=== PATIENT | male | born 1945 | race Caucasian/White ===

== ENCOUNTER 2017-01-31 03:08 | Emergency (ER) | payer OTHER ==
[2017-01-31] MEDS ORDERED: LIDOCAINE 2% URO-JET 5 ML SYRINGE UR STA (03:36)
[2017-01-31] MEDS ORDERED: LIDOCAINE 2% URO-JET 5 ML SYRINGE UR ONE (03:38)
[2017-01-31] MEDS ORDERED: PHENAZOPYRIDINE 100 MG TABLET PO STA (04:14)
[2017-01-31] MEDS ORDERED: PHENAZOPYRIDINE 100 MG TABLET PO ONE (04:15)
== END 2017-01-31 04:50 | disposition home or self-care (01) ==
DX: T83.091A Other mechanical complication of indwelling urethral catheter, initial encounter (principal); R31.9 Hematuria, unspecified; N40.0 Benign prostatic hyperplasia without lower urinary tract symptoms
CPT/HCPCS: 51702; 99283; A9270

== ENCOUNTER 2017-05-31 00:41 | Outpatient (CLI) | payer OTHER | END 2017-05-31 00:42 | disposition critical access hospital (66) | LOC: EMS 00:41 | PROVIDERS: ATTEND Surgery | DX: R39.89 Other symptoms and signs involving the genitourinary system (principal) | CPT/HCPCS: A0425; A0429 ==

== ENCOUNTER 2017-05-31 01:13 | Emergency (ER) | payer OTHER ==
--- NOTE | 2017-05-31 01:27 | ED Physician Documentation ---
PD HPI MALE - Stated complaint Stated Complaint: CATHETER - Chief complaint Chief Complaint: UTI - History obtained from History obtained from: Patient, EMS - History of Present Illness Timing - onset: Today Timing - duration: Hours Timing - details: Gradual onset Associated symptoms: Unable to urinate, Walsh problem Similar symptoms before: Diagnosis Recently seen: Clinic (he had routine change of walsh done this morning, and there was some blood out with placement. This seemed to clear then with feeling of urinary retention and walsh not draining in the past 2-3 hours. Very uncomfortable.) Review of Systems Constitutional: denies: Fever, Chills Musculoskeletal: denies: Back pain PD PAST MEDICAL HISTORY - Past Medical History Cardiovascular: Hypertension Neuro: Seizure disorder : Benign prostate hypertrophy, Indwelling catheter - Past Surgical History Past Surgical History: No Derm: Skin grafts - Present Medications Home Medications: Ambulatory Orders Medication Instructions Recorded Confirmed Carbamazepine 200 mg PO TID 01/31/17 01/31/17 Hydrochlorothiazide 25 mg PO DAILY 01/31/17 01/31/17 Levetiracetam 750 mg PO DAILY 01/31/17 01/31/17 Lisinopril 10 mg PO DAILY 01/31/17 01/31/17 Phenazopyridine HCl [Pyridium] 200 mg PO TID 3 Days 01/31/17 - Allergies Allergies/Adverse Reactions: Allergies Allergy/AdvReac Type Severity Reaction Status Date / Time mephobarbital [From Mebaral] Allergy Unknown Verified 05/31/17 01:32 - Social History Does the pt smoke?: No Smoking Status: Never smoker Does the pt drink ETOH?: No Does the pt have substance abuse?: No - Immunizations Immunizations are current?: No Immunizations: TDAP current <10years PD ED PE NORMAL - Vitals Vital signs reviewed: Yes - General General: Alert and oriented X 3, Well developed/nourished, Other (uncomfortable) - Respiratory Respiratory: Clear bilaterally - Abdomen Abdomen: Normal bowel sounds, Soft, Non distended, No organomegaly, Other ( tender with fullness in suprapubic area. ) - Male Male : Other (walsh in place. Meatus appears normal. ) Results - Vitals Vitals: Oxygen O2 Source Room air PD MEDICAL DECISION MAKING - ED course Complexity details: considered differential (walsh would not flush/irrigate so was changed (had large clot in lumen at end). Flow is good now and no bleeding at time of discharge. Bladder scan shows 34 ml, so emptying well. ), d/w patient Departure - Departure Disposition: 01 Home, Self Care Clinical Impression: Obstructed Walsh catheter Qualifiers: Encounter type: initial encounter Qualified Code(s): T83.091A - Other mechanical complication of indwelling urethral catheter, initial encounter Condition: Stable Record reviewed to determine appropriate education?: Yes Instructions: ED Catheter Care Walsh Comments: Usual care of the catheter. Recheck if problems with outflow again. Discharge Date/Time: 05/31/17 02:47
[2017-05-31 01:32] VITALS: BP 140/78
== END 2017-05-31 02:47 | disposition home or self-care (01) ==
LOC: EDUNIT# → EDBD → ED 01:13
DX: T83.098A Other mechanical complication of other urinary catheter, initial encounter (principal); I10 Essential (primary) hypertension; N40.0 Benign prostatic hyperplasia without lower urinary tract symptoms
CPT/HCPCS: 51702; 51798; 99283

== ENCOUNTER 2017-07-25 16:57 | Emergency (ER) | payer OTHER ==
[2017-07-25 20:01] LABS: BILIRUBIN,URINE NEGATIVE (NEGATIVE); PH,URINE 5.5 PH (5.0-7.5)
[2017-07-25 20:02] LABS: UA w/ MICROSCOPIC CHARGE YES
[2017-07-25 20:14] LABS: UR CULTURE IF IND INDICATED; WBC,URINE >25 /HPF (0-3)
[2017-07-25] MEDS ORDERED: levoFLOXacin 250 MG TABLET PO STA (20:39)
--- NOTE | 2017-07-25 20:39 | ED Physician Documentation ---
PD HPI MALE - Stated complaint Stated Complaint: MALE - Chief complaint Chief Complaint: General - History obtained from History obtained from: Patient - History of Present Illness Timing - onset: Today Timing - details: Gradual onset, Still present Associated symptoms: Hematuria, Indwelling catheter PD HPI MALE CONTRIB FACTORS: Not sexually active Similar symptoms before: Has not had sx before Recently seen: Not recently seen - Additional information Additional information: Patient is a 71 year old male with a history of bph and indwelling walsh who is presenting to the emergency department for hematuria. patient states that the symptoms started today. [facility] for [facility]. Patient denied any nausea, vomiting, fever or chills. Review of Systems Constitutional: denies: Fever, Chills Ears: reports: Reviewed and negative Nose: denies: Epistaxis Throat: reports: Reviewed and negative Cardiac: denies: Chest pain / pressure, Palpitations Respiratory: denies: Cough GI: denies: Nausea, Vomiting : reports: Hematuria Skin: denies: Rash, Lesions Musculoskeletal: denies: Back pain, Extremity pain, Joint pain, Extremity swelling Neurologic: denies: Generalized weakness, Focal weakness, Altered mental status Endocrine: denies: Easy bruising / bleeding Immunocompromised: denies: Immunocompromised PD PAST MEDICAL HISTORY - Past Medical History Cardiovascular: Hypertension Neuro: Seizure disorder : Benign prostate hypertrophy, Indwelling catheter - Past Surgical History Past Surgical History: No Derm: Skin grafts - Present Medications Home Medications: Ambulatory Orders Medication Instructions Recorded Confirmed Carbamazepine 200 mg PO TID 01/31/17 07/25/17 Hydrochlorothiazide 25 mg PO DAILY 01/31/17 07/25/17 Levetiracetam 750 mg PO DAILY 01/31/17 07/25/17 Lisinopril 10 mg PO DAILY 01/31/17 07/25/17 Levofloxacin [Levaquin] 750 mg PO DAILY #4 tablet 07/25/17 - Allergies Allergies/Adverse Reactions: Allergies Allergy/AdvReac Type Severity Reaction Status Date / Time mephobarbital [From Mebaral] Allergy Unknown Verified 05/31/17 01:32 - Social History Does the pt smoke?: No Smoking Status: Never smoker Does the pt drink ETOH?: No Does the pt have substance abuse?: No - Immunizations Immunizations are current?: No Immunizations: TDAP current <10years - POLST Patient has POLST: No PD ED PE NORMAL - Vitals Vital signs reviewed: Yes - General General: Alert and oriented X 3, No acute distress - HEENT HEENT: Atraumatic, PERRL - Neck Neck: Supple, no meningeal sign - Cardiac Cardiac: RRR, No murmur - Respiratory Respiratory: No respiratory distress - Abdomen Abdomen: Non distended - Derm Derm: Normal color, Warm and dry, No rash - Extremities Extremities: No deformity - Neuro Neuro: Alert and oriented X 3, No motor deficit, No sensory deficit, Normal speech - Psych Psych: Normal mood, Normal affect PD ED PE EXPANDED - Male Male : Other (walsh in place with mild blood around the meatus) Results - Vitals Vitals: Vital Signs - 24 hr 07/25/17 07/25/17 17:22 20:51 Temperature 36.7 C Heart Rate 67 63 Respiratory 16 18 Rate Blood Pressure 129/82 H 128/73 O2 Saturation 97 100 Oxygen O2 Source Room air - Labs Labs: Laboratory Tests 07/25/17 19:47 Urine Color BROWN Urine Clarity CLOUDY Urine pH 5.5 Ur Specific [place] 1.025 Urine Protein 100 H Urine Glucose (UA) NEGATIVE Urine Ketones TRACE Urine Occult Blood LARGE H Urine Nitrite POSITIVE H Urine Bilirubin NEGATIVE Urine Urobilinogen 1 (NORMAL) Ur Leukocyte Esterase MODERATE H Urine RBC TNTC H Urine WBC >25 H Ur Squamous Epith Cells FEW Squamous Urine Bacteria Moderate H Ur Microscopic Review INDICATED Urine Culture Comments INDICATED PD MEDICAL DECISION MAKING - ED course Complexity details: reviewed old records, reviewed results, re-evaluated patient , considered differential, d/w patient ED course: Patient was seen and examined at bedside. Urine was collected and sent. walsh was replaced. Patient had no signs of obstruction. patient was treated with levoquin for a uti. Patient required no further inpatient work up and was stable for discharge with outpatient follow up. Departure - Departure Disposition: 01 Home, Self Care Clinical Impression: Hematuria, Cystitis Condition: Good Instructions: ED UTI Cystitis Male Follow-Up: primary,care provider [Other] - Within 3 Days Prescriptions: Levofloxacin [Levaquin] 750 mg PO DAILY #4 tablet Comments: Your symptoms today are being caused at least in part by a urinary tract infection. You had your first dose of antibiotics today and will need to be on them for the next 4 days. You should call your doctor on friday to move up you appointment. You may return to the emergency department at any time for new, worsening or uncontrollable symptoms. Discharge Date/Time: 07/25/17 20:51
[2017-07-25] MEDS ORDERED: levoFLOXacin 250 MG TABLET ONE (20:47)
[2017-07-25 20:52] VITALS: BP 128/73
== END 2017-07-25 20:51 | disposition home or self-care (01) ==
LOC: ED 16:57
DX: N30.91 Cystitis, unspecified with hematuria (principal); N40.0 Benign prostatic hyperplasia without lower urinary tract symptoms
CPT/HCPCS: 51702; 81001; 87086; 87181; 99282; 99283; A9270; 81003

== ENCOUNTER 2017-12-16 16:51 | Emergency (ER) | payer OTHER ==
[2017-12-16] MEDS ORDERED: LIDOCAINE 2% URO-JET 5 ML SYRINGE UR STA (17:31)
[2017-12-16] MEDS ORDERED: HYDROcod/ACETAM 5/325 MG TABLET PO STA (17:31)
--- NOTE | 2017-12-16 18:24 | ED Physician Documentation ---
PD HPI MALE - Stated complaint Stated Complaint: CATH BLEEDING - Chief complaint Chief Complaint: Abd Pain - History obtained from History obtained from: Patient - History of Present Illness Timing - onset: Today (had walsh changed at the [facility] (routine change of chronic walsh) and had some bleeding with it, and then walsh not draining the past few hours, with abd cramping.) Timing - duration: Hours Timing - details: Gradual onset Associated symptoms: Walsh problem Similar symptoms before: Diagnosis (clogged walsh) Recently seen: Clinic ([place]) Review of Systems Constitutional: denies: Fever, Chills Nose: denies: Rhinorrhea / runny nose, Congestion Throat: denies: Sore throat Respiratory: denies: Cough PD PAST MEDICAL HISTORY - Past Medical History Cardiovascular: Hypertension Neuro: Seizure disorder : Benign prostate hypertrophy, Indwelling catheter - Past Surgical History Past Surgical History: No Derm: Skin grafts - Present Medications Home Medications: Ambulatory Orders Medication Instructions Recorded Confirmed Lisinopril 10 mg PO DAILY 01/31/17 07/25/17 carBAMazepine [Carbamazepine] 200 mg PO TID 01/31/17 07/25/17 hydroCHLOROthiazide 25 mg PO DAILY 01/31/17 07/25/17 [Hydrochlorothiazide] levETIRAcetam [Levetiracetam] 750 mg PO DAILY 01/31/17 07/25/17 Levofloxacin [Levaquin] 750 mg PO DAILY #4 tablet 07/25/17 - Allergies Allergies/Adverse Reactions: Allergies Allergy/AdvReac Type Severity Reaction Status Date / Time mephobarbital [From Mebaral] Allergy Unknown Verified 05/31/17 01:32 - Social History Does the pt smoke?: No Smoking Status: Never smoker Does the pt drink ETOH?: No Does the pt have substance abuse?: No - Immunizations Immunizations are current?: No Immunizations: TDAP current <10years - POLST Patient has POLST: No PD ED PE NORMAL - Vitals Vital signs reviewed: Yes - General General: Alert and oriented X 3, Well developed/nourished - HEENT HEENT: Moist mucous membranes, Pharynx benign - Cardiac Cardiac: RRR, No murmur - Respiratory Respiratory: Clear bilaterally - Abdomen Abdomen: Normal bowel sounds, Soft, Non tender, Non distended - Male Male : Other (walsh in place, not draining well. ) Results - Vitals Vitals: Oxygen O2 Source Room air PD MEDICAL DECISION MAKING - ED course Complexity details: considered differential (irrigating did not help; walsh changed and new one working okay. ), d/w patient Departure - Departure Disposition: 01 Home, Self Care Clinical Impression: Obstructed Walsh catheter Qualifiers: Encounter type: initial encounter Qualified Code(s): T83.091A - Other mechanical complication of indwelling urethral catheter, initial encounter Condition: Stable Record reviewed to determine appropriate education?: Yes Instructions: ED Catheter Care Walsh Comments: Continue usual Walsh catheter care and usual medications. Follow-up with your primary care as needed. Discharge Date/Time: 12/16/17 19:04
[2017-12-16 18:34] VITALS: BP 155/86
== END 2017-12-16 19:04 | disposition home or self-care (01) ==
LOC: ED 16:51
DX: T83.091A Other mechanical complication of indwelling urethral catheter, initial encounter (principal); I10 Essential (primary) hypertension; N40.0 Benign prostatic hyperplasia without lower urinary tract symptoms
CPT/HCPCS: 51702; 51798; 99283; A9270

== ENCOUNTER 2018-01-10 02:32 | Inpatient (IN) | payer OTHER ==
[~2018-01-10 02:32] MED LIST: levoFLOXacin 500 MG/100 ML 500 MG/100 ML BAG IV SCH
[2018-01-10] MEDS ORDERED: fentaNYL 100 MCG/2 ML VIAL IM STA (03:05)
[2018-01-10 04:18] LABS: BILIRUBIN,URINE NEGATIVE (NEGATIVE); GLUCOSE, URINE (UA) NEGATIVE (NEGATIVE); KETONES,URINE (UA) NEGATIVE (NEGATIVE); LEUKOCYTE ESTERASE, URINE NEGATIVE (NEGATIVE); NITRITE,URINE NEGATIVE (NEGATIVE); OCCULT BLOOD,URINE LARGE (NEGATIVE); PROTEIN,URINE NEGATIVE (NEGATIVE); UROBILINOGEN,URINE 0.2 (NORMAL) E.U./dL (NORMAL)
[2018-01-10 04:20] LABS: CLARITY,URINE HAZY (CLEAR)
[2018-01-10 04:26] LABS: BACTERIA,URINE None Seen /HPF (None Seen); RBC,URINE TNTC /HPF (0-5); SQUAMOUS EPITHELIAL CELL,UR NONE SEEN (<= Few)
[2018-01-10] MEDS ORDERED: SALINE ENEMA 133 ML BOTTLE RC STA (04:34)
--- NOTE | 2018-01-10 04:40 | ED Physician Documentation ---
PD HPI MALE - Stated complaint Stated Complaint: MALE - Chief complaint Chief Complaint: General - History obtained from History obtained from: Patient - History of Present Illness Timing - onset: Today Timing - details: Gradual onset, Still present Associated symptoms: Unable to urinate, Hematuria Similar symptoms before: Work up / diagnostics, Treatment Recently seen: Clinic - Additional information Additional information: Patient is a 72 year old male with a history of bph and indwelling walsh catheter who is presenting to the emergency department for urinary retention. Patient states that he had a catheter placed at the [facility] earlier today and it was fairly bloody. Patient states that this evening he was unable to urinate and had a distended abdomen. Review of Systems Constitutional: reports: Chills. denies: Fever Eyes: reports: Reviewed and negative Ears: reports: Reviewed and negative Nose: reports: Reviewed and negative Throat: reports: Reviewed and negative Cardiac: denies: Chest pain / pressure, Palpitations GI: reports: Abdominal Pain, Abdominal Swelling. denies: Nausea, Vomiting : reports: Unable to Void, Hematuria Skin: denies: Rash, Lesions Neurologic: denies: Generalized weakness, Focal weakness Immunocompromised: denies: Immunocompromised PD PAST MEDICAL HISTORY - Past Medical History Past Medical History: Yes Cardiovascular: Hypertension Respiratory: None Neuro: Seizure disorder Endocrine/Autoimmune: None : Benign prostate hypertrophy, Indwelling catheter HEENT: None Psych: None Musculoskeletal: None Derm: None - Past Surgical History Past Surgical History: No Derm: Skin grafts - Present Medications Home Medications: Ambulatory Orders Medication Instructions Recorded Confirmed Lisinopril 10 mg PO DAILY 01/31/17 07/25/17 carBAMazepine [Carbamazepine] 200 mg PO TID 01/31/17 07/25/17 hydroCHLOROthiazide 25 mg PO DAILY 01/31/17 07/25/17 [Hydrochlorothiazide] levETIRAcetam [Levetiracetam] 750 mg PO DAILY 01/31/17 07/25/17 Levofloxacin [Levaquin] 750 mg PO DAILY #4 tablet 07/25/17 - Allergies Allergies/Adverse Reactions: Allergies Allergy/AdvReac Type Severity Reaction Status Date / Time mephobarbital [From Mebaral] Allergy Unknown Verified 01/10/18 02:38 - Social History Does the pt smoke?: No Smoking Status: Never smoker Does the pt drink ETOH?: No Does the pt have substance abuse?: No - Immunizations Immunizations are current?: No Immunizations: TDAP current <10years - POLST Patient has POLST: No PD ED PE NORMAL - Vitals Vital signs reviewed: Yes - General General: Alert and oriented X 3 - HEENT HEENT: Atraumatic, PERRL - Cardiac Cardiac: RRR - Respiratory Respiratory: No respiratory distress - Derm Derm: Normal color, Warm and dry - Extremities Extremities: No deformity - Neuro Neuro: Alert and oriented X 3, No motor deficit, No sensory deficit, Normal speech Eye Opening: Spontaneous PD ED PE EXPANDED - General General: Alert, In Pain - Abdomen Abdomen: Distended, Tender to palpation, Suprapubic - Male Male : Other (walsh in place, small amount of blood at the meatus) Results - Vitals Vitals: Vital Signs - 24 hr 01/10/18 01/10/18 01/10/18 02:37 03:26 03:39 Temperature 36.7 C Heart Rate 99 89 93 Respiratory 22 26 H 24 Rate Blood Pressure 140/101 H 172/93 H 165/87 H O2 Saturation 99 100 100 01/10/18 01/10/18 01/10/18 04:26 04:54 04:59 Temperature Heart Rate 90 90 Respiratory 22 22 22 Rate Blood Pressure 138/83 H 170/98 H O2 Saturation 100 100 Oxygen O2 Source Room air - Labs Labs: Laboratory Tests 01/10/18 04:15 Urine Color YELLOW Urine Clarity HAZY Urine pH 5.0 Ur Specific [place] <=1.005 Urine Protein NEGATIVE Urine Glucose (UA) NEGATIVE Urine Ketones NEGATIVE Urine Occult Blood LARGE H Urine Nitrite NEGATIVE Urine Bilirubin NEGATIVE Urine Urobilinogen 0.2 (NORMAL) Ur Leukocyte Esterase NEGATIVE Urine RBC TNTC H Urine WBC 0-3 Ur Squamous Epith Cells NONE SEEN Urine Bacteria None Seen Ur Microscopic Review INDICATED Urine Culture Comments NOT INDICATED PD MEDICAL DECISION MAKING - ED course Complexity details: reviewed old records, reviewed results, re-evaluated patient , considered differential, d/w patient ED course: Patient was seen and examined at bedside. walsh was exchanged and clots were removed. Patient's bladder was flushed with 3 liter bag. Patient stated he was constipated and asked for an emema and was treated with one. Patient required no further inpatient work up and was stable for discharge with outpatient follow up. Departure - Departure Disposition: 01 Home, Self Care Clinical Impression: Hematuria, Obstructed Walsh catheter Condition: Good Instructions: ED Catheter Care Walsh Follow-Up: Provider,Other [Primary Care Provider] - Within 3 Days Comments: Your symptoms today were being caused by urinary retention which is likely secondary to a blood clot. Your bladder has been flushed which should help with the symptoms. You should follow up with your doctor if your symptoms return or you may return to the emergency department.
[2018-01-10] MEDS ORDERED: SODIUM CHLORIDE 0.9% 1,000 ML IV ONE (07:09)
--- NOTE | 2018-01-10 08:48 | ED Physician Documentation ---
History of Present Illness - Stated complaint Stated Complaint: MALE - Chief complaint Chief Complaint: General PD PAST MEDICAL HISTORY - Past Medical History Past Medical History: Yes Cardiovascular: Hypertension Respiratory: None Neuro: Seizure disorder Endocrine/Autoimmune: None : Benign prostate hypertrophy, Indwelling catheter HEENT: None Psych: None Musculoskeletal: None Derm: None - Past Surgical History Past Surgical History: No Derm: Skin grafts - Present Medications Home Medications: Ambulatory Orders Medication Instructions Recorded Confirmed Lisinopril 10 mg PO 1700 01/31/17 01/10/18 carBAMazepine [Carbamazepine] 200 mg PO 0800,1200,1700 01/31/17 01/10/18 hydroCHLOROthiazide 25 mg PO DAILY 01/31/17 01/10/18 [Hydrochlorothiazide] levETIRAcetam [Levetiracetam] 375 mg PO BID 01/31/17 01/10/18 Ascorbic Acid [Vitamin C] 1,000 mg PO DAILY 01/10/18 01/10/18 Cholecalciferol [Vitamin D3] 5,000 units PO DAILY 01/10/18 01/10/18 Finasteride 5 mg PO DAILY 01/10/18 01/10/18 [place]-3 Acid Ethyl Esters [Lovaza] 1 gm PO DAILY 01/10/18 01/10/18 Tamsulosin [Flomax] 0.4 mg PO 1700 01/10/18 01/10/18 carBAMazepine [Carbamazepine] 400 mg PO QPM 01/10/18 01/10/18 - Allergies Allergies/Adverse Reactions: Allergies Allergy/AdvReac Type Severity Reaction Status Date / Time mephobarbital [From Mebaral] Allergy Unknown Verified 01/10/18 02:38 - Social History Does the pt smoke?: No Smoking Status: Never smoker Does the pt drink ETOH?: No Does the pt have substance abuse?: No - Immunizations Immunizations are current?: No Immunizations: TDAP current <10years - POLST Patient has POLST: No Results - Vitals Vitals: Vital Signs - 24 hr 01/10/18 01/10/18 01/10/18 02:37 03:26 03:39 Temperature 36.7 C Heart Rate 99 89 93 Respiratory 22 26 H 24 Rate Blood Pressure 140/101 H 172/93 H 165/87 H O2 Saturation 99 100 100 01/10/18 01/10/18 01/10/18 04:26 04:54 04:59 Temperature Heart Rate 90 90 Respiratory 22 22 22 Rate Blood Pressure 138/83 H 170/98 H O2 Saturation 100 100 01/10/18 01/10/18 01/10/18 06:06 06:45 07:15 Temperature 37.6 C H Heart Rate 90 114 H Respiratory 20 20 16 Rate Blood Pressure 164/92 H 90/50 L O2 Saturation 100 93 01/10/18 01/10/18 01/10/18 08:32 09:30 10:30 Temperature Heart Rate 99 95 94 Respiratory 18 18 18 Rate Blood Pressure 104/67 85/57 L 101/56 L O2 Saturation 97 99 100 01/10/18 11:30 Temperature Heart Rate 95 Respiratory 18 Rate Blood Pressure 89/58 L O2 Saturation 100 Oxygen O2 Source Room air - Labs Labs: Laboratory Tests 01/10/18 01/10/18 01/10/18 04:15 09:45 09:45 WBC 16.3 H RBC 3.85 L Hgb 12.4 L Hct 35.1 L MCV 91.2 MCH 32.2 H MCHC 35.4 RDW 13.7 Plt Count 237 MPV 7.0 L Neut # Not Reportable Lymph # Not Reportable Owen # Not Reportable Eos # Not Reportable Baso # Not Reportable Absolute Nucleated RBC Not Reportable Total Counted 100 Band Neuts % (Manual) 17 H Abnorm Lymph % (Manual) 0 Metamyelocytes % 3 H Nucleated RBC % Not Reportable Neutrophils # (Manual) 15.0 H Lymphocytes # (Manual) 0.3 L Monocytes # (Manual) 0.5 Eosinophils # (Manual) 0.0 Basophils # (Manual) 0.0 Differential Comment MANUAL DIFFERENTIAL WBC Morphology 1+ VACUOLATION Platelet Estimate NORMAL (130-450,000) Platelet Morphology NORMAL APPEARANCE RBC Morph Micro Appear NORMAL APPEARANCE Sodium 130 L Potassium 2.8 L Chloride 98 L Carbon Dioxide 22 Anion Gap 10.0 BUN 17 Creatinine 1.2 Estimated GFR (MDRD) 59 L Glucose 122 H Lactic Acid Calcium 8.2 L Urine Color YELLOW Urine Clarity HAZY Urine pH 5.0 Ur Specific [place] <=1.005 Urine Protein NEGATIVE Urine Glucose (UA) NEGATIVE Urine Ketones NEGATIVE Urine Occult Blood LARGE H Urine Nitrite NEGATIVE Urine Bilirubin NEGATIVE Urine Urobilinogen 0.2 (NORMAL) Ur Leukocyte Esterase NEGATIVE Urine RBC TNTC H Urine WBC 0-3 Urine WBC Clumps Ur Squamous Epith Cells NONE SEEN Urine Bacteria None Seen Ur Microscopic Review INDICATED Urine Culture Comments NOT INDICATED 01/10/18 01/10/18 09:45 11:20 WBC RBC Hgb Hct MCV MCH MCHC RDW Plt Count MPV Neut # Lymph # Owen # Eos # Baso # Absolute Nucleated RBC Total Counted Band Neuts % (Manual) Abnorm Lymph % (Manual) Metamyelocytes % Nucleated RBC % Neutrophils # (Manual) Lymphocytes # (Manual) Monocytes # (Manual) Eosinophils # (Manual) Basophils # (Manual) Differential Comment WBC Morphology Platelet Estimate Platelet Morphology RBC Morph Micro Appear Sodium Potassium Chloride Carbon Dioxide Anion Gap BUN Creatinine Estimated GFR (MDRD) Glucose Lactic Acid 1.8 Calcium Urine Color YELLOW Urine Clarity SL. 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 hx BPH and urinary retention came to ED last night with hematuria clots and retention after walsh placement at [facility] had walsh exchanged for a 3 way, UA neg for infection, badder irrigated clear, given enema, plan was to dc with walsh fup his urologist just before manufacturing shift supervisor left nurse did dc VS and reported pt to be weak and have a slightly low BP - so manufacturing shift supervisor ordered 1 L NS and felt pt could be dced now the L of IVF is done and BP is better but nursing comes to me concerned he has clots in his urine again so I recommended more irrigation and went to see the pt after irrigation urine is draining clear again but pt SBP is 90 - he normally runs about 120+ per pt RRR CTAB soft NT, small blood at meatus, clear urine draining, no retention on bladder scan he states he had chills recently no fever, no cough, no abd pain other than distension, no NVD no labs were run last night so those were added on UA was clean except for blood but very dilute after irrigation so consider as source of infection - or prostate - sent a rpt UA (which was +) and will give cipro also got labs notable for leukocytosis and bandemia given persistent hypotension pt will need admit still low BP gave another 2 L NS for 30cc/kg checked prostate and it is enlarged and a bit boggy/spongy but not terribly tender will add on CXR but feel source in urinary call to [facility] re [facility] here vs transfer - spoke to Trey Pimentel who advises me the [facility] is not [facility] at this time, he states that there is no one available at the [facility] today to authorize admission to [facility] or confirm payment for services but that the [facility] cannot accept the pt, [employer] tried to called [facility] Care Management but advises me they are not available today either so will admit for sepsis (hypotension bandemia, likely prostate infection) - now that walsh is irrigated and working feel reasonable to care for pt here spoke to hospitalist at 1245 also care management available later in the day and states they will follow up with [facility] when available Departure - Departure Disposition: 66 [facility] DC/Xfer Clinical Impression: Sepsis, Hematuria, Obstructed Walsh catheter Condition: Fair Discharge Date/Time: 01/10/18 14:00
[2018-01-10] MEDS ORDERED: CIPROFLOXACIN 400 MG/200 ML 200 ML IV ONE (09:35)
[2018-01-10 10:00] LABS: CALCIUM 8.2 mg/dL (8.5-10.3); CREATININE 1.2 mg/dL (0.6-1.2)
[2018-01-10 10:01] LABS: BASOPHILS % (AUTO) 1.2 %; HGB - HEMOGLOBIN 12.4 g/dL (14.0-18.0); LYMPHOCYTES % (AUTO) 1.5 %; MEAN CORPUSCULAR HEMOGLOBIN 32.2 pg (27.0-31.0); MEAN CORPUSCULAR HGB CONC 35.4 g/dL (32.0-36.0); MEAN CORPUSCULAR VOLUME 91.2 fL (80.0-94.0); NEUTROPHILS % (AUTO) 95.3 %; PLT - PLATELET COUNT 237 10^3/uL (130-450); RED BLOOD COUNT 3.85 10^6/uL (4.70-6.10); RED CELL DISTRIBUTION WIDTH 13.7 % (12.0-15.0); WHITE BLOOD COUNT 16.3 x10^3/uL (4.8-10.8)
[2018-01-10 10:05] LABS: ABNORMAL LYMPHS % (MANUAL) 0 %
[2018-01-10 10:23] LABS: BAND NEUTROPHILS % (MANUAL) 17 %; LYMPHOCYTES # (MANUAL) 0.3 10^3/uL (1.5-3.5); LYMPHOCYTES % (MANUAL) 2 %; METAMYELOCYTES % (MANUAL) 3 %; MONOCYTES # (MANUAL) 0.5 10^3/uL (0.0-1.0); NEUTROPHILS % (MANUAL) 75 %; PLATELET ESTIMATE, MANUAL NORMAL (130-450,000) (NORMAL); PLATELET MORPHOLOGY NORMAL APPEARANCE (NORMAL); RBC MORPHOLOGY (MULTIPLE) NORMAL APPEARANCE (NORMAL)
[2018-01-10 10:24] LABS: DIFFERENTIAL COMMENT MANUAL DIFFERENTIAL
[2018-01-10] MEDS ORDERED: POTASSIUM CHLORIDE 20 MEQ TABLET PO STA (10:36)
[2018-01-10] MEDS ORDERED: SODIUM CHLORIDE 0.9% 2,000 ML IV ONE (10:36)
[2018-01-10 11:26] LABS: BILIRUBIN,URINE NEGATIVE (NEGATIVE); GLUCOSE, URINE (UA) NEGATIVE (NEGATIVE); KETONES,URINE (UA) NEGATIVE (NEGATIVE); LEUKOCYTE ESTERASE, URINE MODERATE (NEGATIVE); NITRITE,URINE NEGATIVE (NEGATIVE); OCCULT BLOOD,URINE LARGE (NEGATIVE); PROTEIN,URINE 100 mg/dL (NEGATIVE); UROBILINOGEN,URINE 0.2 (NORMAL) E.U./dL (NORMAL)
[2018-01-10 11:30] LABS: CLARITY,URINE SL. CLOUDY (CLEAR)
[2018-01-10 11:39] LABS: BACTERIA,URINE Rare /HPF (None Seen); RBC,URINE TNTC /HPF (0-5); SQUAMOUS EPITHELIAL CELL,UR NONE SEEN (<= Few); WBC CLUMPS,URINE PRESENT
--- NOTE | 2018-01-10 12:22 | XRAY Report ---
EXAM: CHEST RADIOGRAPHY EXAM DATE: 01/10/2018 11:43 AM. CLINICAL HISTORY: Fever. COMPARISON: None. TECHNIQUE: 1 view. FINDINGS: Lungs/Pleura: Lung volumes are slightly low. No focal opacities evident. No pleural effusion. No pneu mothorax. Mediastinum: Within exam limitations, the cardiomediastinal contour is normal. Other: No acute osseous abnormality. IMPRESSION: No acute cardiopulmonary abnormality. [facility] Referring Provider Line: [phone] SITE ID: [id number]
[2018-01-10] MEDS ORDERED: PROCHLORPERAZINE 10 MG/2 ML VIAL IVP PRN (13:04)
[2018-01-10] MEDS ORDERED: oxyCODONE 5 MG TABLET PO PRN (13:04)
[2018-01-10] MEDS ORDERED: SODIUM CHLORIDE FLUSH 0.9% 10 ML SYRINGE IVP PRN (13:04)
[2018-01-10] MEDS ORDERED: TEMAZEPAM 15 MG CAPSULE PO PRN (13:04)
--- NOTE | 2018-01-10 13:30 | HISTORY & PHYSICAL EXAMINATION ---
Chief Complaint - Chief Complaint Chief Complaint: Bleeding status post Taylor catheter insertion History of Present Illness - Admitted From Admitted From:: Home - History Obtained From Records Reviewed: Yes History obtained from: Patient, records, Dr Nguyen Exam Limitations: none - History of Present Illness HPI Comment/Other: Mr. Mark Guevara is a pleasant 72-year-old gentleman with a history of prostatic hyperplasia who normally has a indwelling Taylor catheter. Yesterday he went down to the [facility] where the catheter was replaced. He began to have bleeding afterwards and came to the emergency department at [facility] when the bleeding did not stop. He was evaluated treated and was about to be discharged when he started to become hypotensive and show signs that he may be becoming septic. A repeat CBC found the patient had to have developed a bandemia and an elevated leukocyte count and he is therefore admitted with a diagnosis of prostatitis/urosepsis. History - Past Medical History Cardiovascular: reports: Hypertension, High cholesterol Respiratory: reports: None Neuro: reports: Seizure disorder Endocrine/Autoimmune: reports: None : reports: Benign prostate hypertrophy, Indwelling catheter HEENT: reports: None Psych: reports: None Musculoskeletal: reports: None Derm: reports: None MRSA Hx?: No - Past Surgical History Ortho: reports: Other (The patient says he has had minor surgeries on his foot and hand.) Derm: reports: Skin grafts - Family & Social History Family History: Mother: , CAD, CVA/TIA, Hyperlipidemia, Hypertension, [place] , Father: , Cancer, Diabetes, Type 1 Living arrangement: At home Living Situation: Alone - Substance History Use: Uses substance without health or social issues: NONE Abuse: Recurrent use of substance despite neg consequences: NONE Dependence: Experiences withdrawal or developed tolerances: NONE - POLST Patient has POLST: No POLST Status: Full Code Meds/Allgy - Home Medications Home Medications: Ambulatory Orders Medication Instructions Recorded Confirmed Lisinopril 10 mg PO 1700 01/31/17 01/10/18 carBAMazepine [Carbamazepine] 200 mg PO 0800,1200,1700 01/31/17 01/10/18 hydroCHLOROthiazide 25 mg PO DAILY 01/31/17 01/10/18 [Hydrochlorothiazide] levETIRAcetam [Levetiracetam] 375 mg PO BID 01/31/17 07/25/17 Ascorbic Acid [Vitamin C] 1,000 mg PO DAILY 01/10/18 01/10/18 Cholecalciferol [Vitamin D3] 5,000 units PO DAILY 01/10/18 01/10/18 Finasteride 5 mg PO DAILY 01/10/18 01/10/18 [place]-3 Acid Ethyl Esters [Lovaza] 1 gm PO DAILY 01/10/18 01/10/18 Tamsulosin [Flomax] 0.4 mg PO 1700 01/10/18 01/10/18 carBAMazepine [Carbamazepine] 200 mg PO QPM 01/10/18 01/10/18 - Allergies Allergies/Adverse Reactions: Allergies Allergy/AdvReac Type Severity Reaction Status Date / Time mephobarbital [From Mebaral] Allergy Unknown Verified 01/10/18 02:38 Review of Systems - Constitutional Constitutional: denies: Fatigue, Fever, Chills, Night sweats - Eyes Eyes: denies: Pain, Irritation, Blurred vision, Dipolpia - Ears, Nose & Throat Ears, Nose & Throat: denies: Ear pain, Hearing loss, Tinnitus, Vertigo, Nasal discharge, Nosebleeds - Cardiovascular Cariovascular: denies: Irregular heart rate, Palpitations, Chest pain, Edema, Syncope - Respiratory Respiratory: denies: Cough, Sputum production, Wheezing, Snoring, Hemoptysis, Orthopnea - Gastrointestinal Gastrointestinal: denies: Abdominal pain, Abdominal distention, Constipation, Diarrhea, Change in bowel habits, Rectal bleeding - Genitourinary Genitourinary: reports: Dysuria, Hematuria, Flank pain. denies: Frequency, Urgency - Musculoskeletal Musculoskeletal: denies: Muscle pain, Back pain, Muscle aches, Stiffness - Integumentary Integumentary: denies: Rash, Pruritis, Lesions, Dryness - Neurological Neurological: denies: General weakness, Focal weakness, Headache, Dizziness, Numbness - Psychiatric Psychiatric: denies: Depression, Anxiety, Suicidal, Hallucinations - Endocrine Endocrine: denies: Polyuria, Polydypsia, Polyphagia - Hematologic/Lymphatic Hematologic/Lymphatic: denies: Anemia, Bruising, Lymphadenopathy - All Other Systems All Other Systems: reports: Reviewed and negative Exam - Vital Signs Reviewed Vital Signs: Yes Vital Signs: Vital Signs x48h Temp Pulse Resp BP Pulse Ox 01/10/18 11:30 95 18 89/58 L 100 01/10/18 10:30 94 18 101/56 L 100 01/10/18 09:30 95 18 85/57 L 99 01/10/18 08:32 99 18 104/67 97 01/10/18 07:15 114 H 16 90/50 L 93 01/10/18 06:45 20 01/10/18 06:06 37.6 C H 90 20 164/92 H 100 - Physical Exam General Appearance: positive: No acute distress, Alert, Mild distress Eyes Bilateral: positive: Normal inspection, PERRL, EOMI, No lid inflammation, Conjunctivae nml, No scleral icterus ENT: positive: ENT inspection nml, Pharynx nml, No signs of dehydration Neck: positive: Nml inspection, Thyroid nml, No JVD, Trachea midline. negative : Thyromegaly Respiratory: positive: Chest non-tender, No respiratory distress, Breath sounds nml. negative: Wheezes, Rales, Rhonchi Cardiovascular: positive: Regular rate & rhythm, No murmur, No gallop Peripheral Pulses: positive: 1+ Abdomen: positive: Non-tender, No organomegaly, Nml bowel sounds, No distention. negative: Guarding, Rebound Back: positive: Nml inspection. negative: CVA tenderness (R), CVA tenderness (L ) Skin: positive: Color nml, No rash, Warm, Dry. negative: Cyanosis Extremities: positive: Non-tender, Full ROM, Nml appearance Neurologic/Psychiatric: positive: Oriented x3, CN's nml (2-12), Motor nml, Sensation nml, Mood/affect nml Conclusion/Plan - Problem List (1) Prostatitis Conclusion/Plan: Presumed, possibly urosepsis. We will start the patient on IV fluoroquinolones and monitor his Taylor catheter for clots, irrigating as necessary. (2) Hypertension Conclusion/Plan: The patient is hypotensive at this time, we will hold the lisinopril and hydrochlorothiazide. (3) Hypercholesterolemia Conclusion/Plan: Continue omega-3 fatty acids (4) BPH (benign prostatic hyperplasia) Conclusion/Plan: The patient had a Taylor catheter replaced at the [facility] which has caused this current event. We are treating the patient for prostatitis.Taylor catheter is in place, we will continue to monitor. - Lab Results Lab results reviewed: Yes Fish Bones: 01/10/18 09:45 01/10/18 09:45 Core Measures - Anticipated LOS I expect patient to be DC'd or transferred within 96 hours.: Yes - DVT/VTE - Prophylaxis VTE/DVT Device ordered at admit?: Yes
[2018-01-10] MEDS ORDERED: levoFLOXacin 500 MG/100 ML 500 MG/100 ML BAG IV SCH (14:00)
[2018-01-10] MEDS: D5.45NS W/20 MEQ KCL 1,000 ML IV SCH (14:51)
[2018-01-10] MEDS ORDERED: LISINOPRIL 20 MG TABLET PO SCH (17:00)
[2018-01-10] MEDS: SODIUM CHLORIDE FLUSH 0.9% 10 ML SYRINGE IVP SCH (17:22)
[2018-01-10] MEDS: carBAMazepine 200 MG TABLET PO SCH ×2 (17:22→20:43)
[2018-01-10] MEDS: TAMSULOSIN 0.4 MG CAPSULE PO SCH (17:22)
[2018-01-10] MEDS ORDERED: IBUPROFEN 400 MG TABLET PO PRN (18:55)
[2018-01-10] MEDS: levETIRAcetam 250 MG TABLET PO SCH (20:43)
[2018-01-11] MEDS ORDERED: levoFLOXacin 500 MG/100 ML 500 MG/100 ML BAG IV SCH
[2018-01-11] MEDS: SODIUM CHLORIDE FLUSH 0.9% 10 ML SYRINGE IVP SCH ×3 (00:13→15:53)
[2018-01-11] MEDS: D5.45NS W/20 MEQ KCL 1,000 ML IV SCH ×3 (01:19→22:32)
[2018-01-11 08:00] LABS: HGB - HEMOGLOBIN 11.4 g/dL (14.0-18.0); MEAN CORPUSCULAR HEMOGLOBIN 32.3 pg (27.0-31.0); MEAN CORPUSCULAR HGB CONC 34.7 g/dL (32.0-36.0); RED BLOOD COUNT 3.52 10^6/uL (4.70-6.10); RED CELL DISTRIBUTION WIDTH 14.7 % (12.0-15.0); WHITE BLOOD COUNT 11.9 x10^3/uL (4.8-10.8)
[2018-01-11] MEDS: levETIRAcetam 250 MG TABLET PO SCH ×2 (08:34→20:14)
[2018-01-11] MEDS: POTASSIUM CHLORIDE 20 MEQ TABLET PO SCH ×2 (08:34→20:15)
[2018-01-11] MEDS: carBAMazepine 200 MG TABLET PO SCH ×5 (08:35→20:14)
[2018-01-11] MEDS: FAMOTIDINE 20 MG TABLET PO SCH (08:35)
[2018-01-11] MEDS: FINASTERIDE 5 MG TABLET PO SCH (08:35)
[2018-01-11] MEDS: POLYETHYLENE GLYCOL 3350 17 GM PACKET PO SCH (08:36)
[2018-01-11] MEDS ORDERED: hydroCHLOROthiazide 25 MG TABLET PO SCH (09:00)
--- NOTE | 2018-01-11 14:20 | PROVIDER PROGRESS NOTE ---
Subjective - Prog Note Date Prog Note Date: 01/11/18 Prog Note Time: 13:30 - Subjective Pt reports feeling: Improved Subjective: The patient feels "a little better" but is still quite weak.He is not short of breath but does have dysuria. He denies any fevers or chills. He has been eating fairly well and moved his bowels yesterday. Current Medications - Current Medications Current Medications: Bacitracin, carbamazepine, D5W, famotidine, finasteride, hydrochlorothiazide, ibuprofen, Keppra, levofloxacin, lisinopril, oxycodone, polyethylene glycol, Potassium chloride, Compazine, sodium chloride, tamsulosin, temazepam Objective - Vital Signs/Intake & Output Reviewed Vital Signs: Yes Vital Signs: Vital Signs x48h Temp Pulse Resp BP Pulse Ox 01/11/18 12:20 37.1 C 74 24 118/60 97 01/11/18 07:34 37.2 C 89 18 111/52 L 97 Intake & Output: Intake & Output 01/08/18 01/09/18 01/10/18 01/11/18 23:59 23:59 23:59 23:59 Intake Total 1020 2965 Output Total 1250 5075 Balance -230 -2110 - Objective General Appearance: positive: No acute distress, Alert Eyes Bilateral: positive: Normal inspection, PERRL, EOMI, No lid inflammation, Conjunctivae nml, No scleral icterus ENT: positive: ENT inspection nml, Pharynx nml, No signs of dehydration Neck: positive: Nml inspection, Thyroid nml, No JVD, Trachea midline. negative : Thyromegaly Respiratory: positive: Chest non-tender, No respiratory distress, Breath sounds nml. negative: Wheezes, Rales, Rhonchi Cardiovascular: positive: Regular rate & rhythm, No murmur, No gallop Abdomen: positive: Non-tender, No organomegaly, Nml bowel sounds, No distention. negative: Guarding, Rebound Back: positive: Nml inspection. negative: CVA tenderness (R), CVA tenderness (L ) Skin: positive: Color nml, No rash, Warm, Dry. negative: Cyanosis Extremities: positive: Non-tender, Full ROM, Nml appearance Neurologic/Psychiatric: positive: Oriented x3, CN's nml (2-12), Motor nml, Sensation nml, Mood/affect nml - Lab Results Fish Bones: 01/11/18 07:52 01/11/18 07:52 Other Labs: Lab Results x24hrs 18 01/11/18 Range/Units 07:52 07:52 WBC 11.9 H (4.8-10.8) x10^3/uL RBC 3.52 L (4.70-6.10) 10^6/uL Hgb 11.4 L (14.0-18.0) g/dL Hct 32.8 L (42.0-52.0) % MCV 93.0 (80.0-94.0) fL MCH 32.3 H (27.0-31.0) pg MCHC 34.7 (32.0-36.0) g/dL RDW 14.7 (12.0-15.0) % Plt Count 215 (130-450) 10^3/uL MPV 7.0 L (7.4-11.4) fL Sodium 136 (135-145) mmol/L Potassium 3.7 (3.5-5.0) mmol/L Chloride 108 (101-111) mmol/L Carbon Dioxide 22 (21-32) mmol/L Anion Gap 6.0 (6-13) BUN 14 (6-20) mg/dL Creatinine 1.0 (0.6-1.2) mg/dL Estimated GFR (MDRD) 73 L (>89) Glucose 120 H (70-100) mg/dL Calcium 8.0 L (8.5-10.3) mg/dL Assessment/Plan - Problem List (1) Prostatitis Impression: Presumed, possibly urosepsis. We will start the patient on IV fluoroquinolones and monitor his Talyor catheter for clots, irrigating as necessary. The patient was admitted because he became very hypotensive and this was regarded to be sepsis. His blood pressure has been in the low 110s systolically since that time and this no longer appears to be a major issue. (2) Hypertension Impression: We are still holding the patient's lisinopril and hydrochlorothiazide secondary to his episode of hypotension yesterday. Continue present care. (3) Hypercholesterolemia Impression: Continue omega-3 fatty acidsthe patient cannot tolerate statins. (4) BPH (benign prostatic hyperplasia) Impression: The patient had a Taylor catheter replaced at the [facility] which has caused this current event. We are treating the patient for prostatitis. Taylor catheter is in place, we will continue to monitor.
[2018-01-11] MEDS: TAMSULOSIN 0.4 MG CAPSULE PO SCH (17:16)
[2018-01-11] MEDS ORDERED: SODIUM CHLORIDE FLUSH 0.9% 10 ML SYRINGE ONE (20:06)
[2018-01-11] MEDS: BACITRACIN OINT TOP PRN (22:33)
[2018-01-11] MEDS: levoFLOXacin 750 MG/150 ML 750 MG/150 ML BAG IV SCH (23:59)
[2018-01-12] MEDS: SODIUM CHLORIDE FLUSH 0.9% 10 ML SYRINGE IVP SCH ×3 (00:05→17:30)
[2018-01-12 06:08] LABS: HGB - HEMOGLOBIN 11.8 g/dL (14.0-18.0); MEAN CORPUSCULAR HEMOGLOBIN 31.6 pg (27.0-31.0); MEAN CORPUSCULAR HGB CONC 33.9 g/dL (32.0-36.0); MEAN CORPUSCULAR VOLUME 93.4 fL (80.0-94.0); RED BLOOD COUNT 3.72 10^6/uL (4.70-6.10); RED CELL DISTRIBUTION WIDTH 14.4 % (12.0-15.0)
[2018-01-12 06:18] LABS: CALCIUM 8.3 mg/dL (8.5-10.3)
[2018-01-12] MEDS: FINASTERIDE 5 MG TABLET PO SCH (09:05)
[2018-01-12] MEDS: FAMOTIDINE 20 MG TABLET PO SCH (09:05)
[2018-01-12] MEDS: POTASSIUM CHLORIDE 20 MEQ TABLET PO SCH ×2 (09:05→20:52)
[2018-01-12] MEDS: levETIRAcetam 250 MG TABLET PO SCH ×2 (09:05→20:51)
[2018-01-12] MEDS: D5.45NS W/20 MEQ KCL 1,000 ML IV SCH ×2 (09:07→19:23)
[2018-01-12] MEDS: POLYETHYLENE GLYCOL 3350 17 GM PACKET PO SCH (10:32)
[2018-01-12] MEDS: carBAMazepine 200 MG TABLET PO SCH ×3 (13:08→20:52)
--- NOTE | 2018-01-12 16:06 | PROVIDER PROGRESS NOTE ---
Subjective - Prog Note Date Prog Note Date: 01/12/18 Prog Note Time: 14:10 - Subjective Pt reports feeling: Improved (The patient still feels weak but is breathing easier. He denies any new pain. He is eating and moving his bowels. He slept well last night. There were no other new complaints.) Current Medications - Current Medications Current Medications: Bacitracin, carbamazepine, D5W, famotidine, finasteride, hydrochlorothiazide, ibuprofen, Keppra, levofloxacin, lisinopril, oxycodone, polyethylene glycol, Potassium chloride, Compazine, sodium chloride, tamsulosin, temazepam Objective - Vital Signs/Intake & Output Reviewed Vital Signs: Yes Vital Signs: Vital Signs x48h Temp Pulse Resp BP Pulse Ox 01/12/18 15:57 36.8 C 65 20 165/89 H 99 Intake & Output: Intake & Output 01/09/18 01/10/18 01/11/18 01/12/18 23:59 23:59 23:59 23:59 Intake Total 1020 5085 1960 Output Total 1250 8225 3150 Balance -230 -3140 -1190 - Objective General Appearance: positive: No acute distress, Alert, Anxious Eyes Bilateral: positive: Normal inspection, PERRL, EOMI, No lid inflammation, Conjunctivae nml, No scleral icterus Neck: positive: Nml inspection, Thyroid nml, No JVD, Trachea midline. negative : Thyromegaly Respiratory: positive: Chest non-tender, No respiratory distress, Breath sounds nml. negative: Wheezes, Rales, Rhonchi Cardiovascular: positive: Regular rate & rhythm, No murmur, No gallop Abdomen: positive: Non-tender, No organomegaly, Nml bowel sounds, No distention. negative: Guarding, Rebound Back: positive: Nml inspection. negative: CVA tenderness (R), CVA tenderness (L ) Skin: positive: Color nml, No rash, Warm, Dry. negative: Cyanosis Extremities: positive: Non-tender, Full ROM, Nml appearance, No pedal edema Neurologic/Psychiatric: positive: Oriented x3, CN's nml (2-12), Motor nml, Sensation nml, Mood/affect nml - Lab Results Fish Bones: 01/12/18 05:48 01/12/18 05:48 Other Labs: Lab Results x24hrs 01/12/18 01/12/18 Range/Units 05:48 05:48 WBC 8.0 (4.8-10.8) x10^3/uL RBC 3.72 L (4.70-6.10) 10^6/uL Hgb 11.8 L (14.0-18.0) g/dL Hct 34.8 L (42.0-52.0) % MCV 93.4 (80.0-94.0) fL MCH 31.6 H (27.0-31.0) pg MCHC 33.9 (32.0-36.0) g/dL RDW 14.4 (12.0-15.0) % Plt Count 236 (130-450) 10^3/uL MPV 7.0 L (7.4-11.4) fL Sodium 137 (135-145) mmol/L Potassium 4.1 (3.5-5.0) mmol/L Chloride 106 (101-111) mmol/L Carbon Dioxide 23 (21-32) mmol/L Anion Gap 8.0 (6-13) BUN 10 (6-20) mg/dL Creatinine 1.0 (0.6-1.2) mg/dL Estimated GFR (MDRD) 73 L (>89) Glucose 121 H (70-100) mg/dL Calcium 8.3 L (8.5-10.3) mg/dL - Other Results/Comments Other Results/Comments: The blood culture from the patient's right hand drawn on the has grown Klebsiella oxytoca. This should be sensitive to the Levaquin that the patient has been on and we will increase the dose of the Levaquin to 750 mg from 500 mg daily. Assessment/Plan - Problem List (1) Prostatitis Impression: The patient has grown gram-negative rods, Klebsiella oxytoca in his blood. We will give the patient Levaquin 750 mg IV daily which will also cover prostatitis. (2) Hypertension Impression: We had been holding the patient's lisinopril and HCTZ secondary to his relative hypotension. His blood pressure is elevated and we will restart those medications at this time. (3) Hypercholesterolemia Impression: Continue omega-3 fatty acids, the patient cannot tolerate statins. (4) BPH (benign prostatic hyperplasia) Impression: The patient had a Taylor catheter replaced at the [facility] which has caused this current event. We are treating the patient for prostatitis. Taylor catheter is in place, we will continue to monitor.
[2018-01-12] MEDS: TAMSULOSIN 0.4 MG CAPSULE PO SCH (17:25)
[2018-01-12] MEDS: hydroCHLOROthiazide 25 MG TABLET PO SCH (17:25)
[2018-01-12] MEDS: LISINOPRIL 20 MG TABLET PO SCH (17:25)
[2018-01-13] MEDS: levoFLOXacin 750 MG/150 ML 750 MG/150 ML BAG IV SCH (01:13)
[2018-01-13] MEDS: SODIUM CHLORIDE FLUSH 0.9% 10 ML SYRINGE IVP SCH ×3 (01:13→18:57)
[2018-01-13] MEDS: D5.45NS W/20 MEQ KCL 1,000 ML IV SCH ×2 (05:36→08:22)
[2018-01-13 06:24] LABS: HGB - HEMOGLOBIN 12.6 g/dL (14.0-18.0); MEAN CORPUSCULAR HEMOGLOBIN 31.8 pg (27.0-31.0); MEAN CORPUSCULAR HGB CONC 34.6 g/dL (32.0-36.0); MEAN CORPUSCULAR VOLUME 91.8 fL (80.0-94.0); MEAN PLATELET VOLUME 7.1 fL (7.4-11.4); RED BLOOD COUNT 3.96 10^6/uL (4.70-6.10); RED CELL DISTRIBUTION WIDTH 14.3 % (12.0-15.0); WHITE BLOOD COUNT 7.6 x10^3/uL (4.8-10.8)
[2018-01-13 06:29] LABS: CALCIUM 8.6 mg/dL (8.5-10.3); CREATININE 0.9 mg/dL (0.6-1.2)
[2018-01-13] MEDS: POLYETHYLENE GLYCOL 3350 17 GM PACKET PO SCH ×2 (07:01→08:18)
[2018-01-13] MEDS ORDERED: SENNA 8.6 MG TABLET PO SCH (08:00)
[2018-01-13] MEDS ORDERED: DOCUSATE SODIUM 250 MG CAPSULE PO SCH (08:00)
[2018-01-13] MEDS: levETIRAcetam 250 MG TABLET PO SCH ×2 (08:15→22:31)
[2018-01-13] MEDS: carBAMazepine 200 MG TABLET PO SCH ×4 (08:16→22:31)
[2018-01-13] MEDS: FINASTERIDE 5 MG TABLET PO SCH (08:16)
[2018-01-13] MEDS: FAMOTIDINE 20 MG TABLET PO SCH (08:16)
[2018-01-13] MEDS: LISINOPRIL 20 MG TABLET PO SCH (08:16)
[2018-01-13] MEDS: POTASSIUM CHLORIDE 20 MEQ TABLET PO SCH ×2 (08:16→22:30)
[2018-01-13] MEDS: hydroCHLOROthiazide 25 MG TABLET PO SCH (08:16)
[2018-01-13] MEDS: SACCHAROMYCES BOULARDII 250 MG CAPSULE PO SCH ×2 (13:48→18:56)
[2018-01-13] MEDS ORDERED: CARBOXYMETHYLCELLULOSE OPHTH DROPS EACHEYE PRN (17:28)
--- NOTE | 2018-01-13 17:29 | PROVIDER PROGRESS NOTE ---
Assessment/Plan - Problem List (1) Gram-negative bacteremia Assessment/Plan: Blood cx growing klebsiella oxytoca Likely source is prostatitis as urine also growing same Susceptible to levaquin Will continue IV levaquin till discharge for bacteremia Will change to PO levaquin and complete 6 week course for treatment of bacteremia and prostatitis Likely discharge tomorrow (2) Prostatitis Qualifiers: Prostatitis type: acute Qualified Code(s): N41.0 - Acute prostatitis Assessment/Plan: Patient presented with sepsis, hematuria and urinary symptoms Indwelling walsh cath secondary to urinary retention from BPH Urine growing kleb oxytoca and enterococcus faecalis blood cx positive with kleb oxytoca On IV levaquin while hospitalized Will switch to PO levaquin at discharge and will continue for 6 weeks to treat prostatitis (3) Hematuria Qualifiers: Hematuria type: gross Qualified Code(s): R31.0 - Gross hematuria Assessment/Plan: Patient having gross hematuria after going to bathroom today LIkley traumatic or due to infection Will monitor to see if any clots If clots then will need irrigation Not on any anticoagulation (4) BPH (benign prostatic hyperplasia) Qualifiers: Lower urinary tract symptom presence: symptoms present Lower urinary tract symptom detail: urinary obstruction Qualified Code(s): N40.1 - Benign prostatic hyperplasia with lower urinary tract symptoms; N13.8 - Other obstructive and reflux uropathy; N13.8 - Other obstructive and reflux uropathy Assessment/Plan: Patient has indwelling walsh catheter On flomax Has hematuria today Will follow up with urology as outpatient (5) Hypertension Qualifiers: Hypertension type: essential hypertension Qualified Code(s): I10 - Essential (primary) hypertension Assessment/Plan: BP is elevated On lisinopril and HCTZ If BP continues to be elevated will titrate home meds - Current Meds Current Meds: Current Medications Generic Name Dose Route Start Last Admin Trade Name Freq PRN Reason Stop Dose Admin Bacitracin 1 packet 01/11/18 01:22 01/11/18 22:33 Bacitracin TOP 1 packet PRN PRN Administration Skin Care Carbamazepine 200 mg 01/10/18 17:00 01/13/18 13:50 Tegretol PO 200 mg 0800,1200,1700 GET Administration Carbamazepine 400 mg 01/10/18 21:00 01/12/18 20:52 Tegretol PO 400 mg QPM GET Administration Docusate Sodium 250 - 500 mg 01/13/18 08:00 01/13/18 08:16 Colace 250mg Capsule PO 01/13/18 20:00 Not Given ONCE GET Famotidine 20 mg 01/11/18 09:00 01/13/18 08:16 Pepcid PO 20 mg DAILY GET Administration Finasteride 5 mg 01/11/18 09:00 01/13/18 08:16 Proscar PO 5 mg DAILY GET Administration Hydrochlorothiazide 25 mg 01/12/18 17:00 01/13/18 08:16 Hydrodiuril PO 25 mg DAILY GET Administration Potassium Chloride/Dextrose/Sod Cl 1,000 mls @ 100 mls/hr 01/10/18 14:00 08:22 D5.45ns W/20 Meq Kcl IV 100 mls/hr .Q10H GET Administration Levofloxacin 750 mg in 150 mls @ 100 mls/hr 01/12/18 00:00 01/13/18 02:54 Levaquin 750 Mg/150 Ml IV Infused Q24H GET Infusion Levetiracetam 375 mg 01/10/18 21:00 01/13/18 08:15 Keppra PO 375 mg BID GET Administration Lisinopril 20 mg 01/12/18 17:00 01/13/18 08:16 Zestril PO 20 mg DAILY GET Administration Polyethylene Glycol 17 gm 01/11/18 09:00 01/13/18 08:18 Miralax PO 17 gm DAILY GET Administration Potassium Chloride 20 meq 01/11/18 09:00 01/13/18 08:16 K-Dur PO 20 meq BID GET Administration Saccharomyces Boulardii 250 mg 01/13/18 12:00 01/13/18 13:48 Florastor PO 250 mg BIDWM GET Administration Sodium Chloride 10 ml 01/10/18 17:00 01/13/18 08:17 Normal Saline Flush 0.9% IVP Not Given 0100,0900,1700 GET Tamsulosin HCl 0.4 mg 01/10/18 17:00 01/12/18 17:25 Flomax PO 0.4 mg 1700 GET Administration - Lab Result Lab results reviewed: Yes Fish Bone Diagrams: 01/13/18 06:05 01/13/18 06:05 - Diagnostic Imaging Results Diagnostic Imaging Results: Final report reviewed - Additional Planning Condition/Complexity: Guarded My Orders: My Active Orders 01/13/18 12:00 Saccharomyces Dorothydii [Florastor] 250 mg PO BIDWM Consult/Specialty: PT (Will need walker at discharge) Plan Discussed with:: Patient Time Spent: Greater than 60 minutes Subjective - Subjective Patient Reports: Constipation, Other (Complaining of hematuria in catheter. No fevers. Feels urinary urgency.) Nursing Reports: No Complaints Objective Vital Signs: Vital Signs - 24 hr 01/13/18 01/13/18 01/13/18 00:00 07:51 12:10 Temperature 37.2 C 37.0 C Heart Rate [ 76 Activity] Heart Rate [ 71 64 Brachial] Respiratory 16 20 Rate Blood Pressure 174/95 H [Activity] Blood Pressure 149/74 H 152/75 H [Right Brachial artery] O2 Saturation 97 98 01/13/18 15:54 Temperature 36.8 C Heart Rate [ Activity] Heart Rate [ 62 Brachial] Respiratory 18 Rate Blood Pressure [Activity] Blood Pressure 141/76 H [Right Brachial artery] O2 Saturation 98 Oxygen O2 Source Room air I&O (Last 24 Hrs): Intake and Output Totals x24h 01/11/18 01/12/18 01/13/18 23:59 23:59 23:59 Intake Total 5085 4830 2320 Output Total 8262 5600 4500 Balance -9782 -462 -1380 General: Alert, Oriented x3, Cooperative, No acute distress HEENT: Atraumatic, PERRLA, EOMI, Mucous membr. moist/pink Neck: Supple, No JVD, No thyromegaly, +2 carotid pulse wo bruit, No LAD Lymphatic: no adenopathy Neuro: Alert, Non Focal, CN 2-12 Grossly Intact, Oriented Times 3 Cardiovascular: Regular rate, Normal S1, Normal S2, No murmurs Respiratory: Chest non-tender, No respiratory distress, Breath sounds nml Abdomen: Normal bowel sounds, Soft, No tenderness, No hepatospenomegaly Genitourinary: Other (Walsh catheter with gross hematuria) Extremities: No clubbing, No cyanosis, No edema, Normal pulses Skin: No rashes, No breakdown - Results Results: Laboratory Results WBC 7.6 x10^3/uL (4.8-10.8) 01/13/18 06:05 RBC 3.96 10^6/uL (4.70-6.10) L 01/13/18 06:05 Hgb 12.6 g/dL (14.0-18.0) L 01/13/18 06:05 Hct 36.4 % (42.0-52.0) L 01/13/18 06:05 MCV 91.8 fL (80.0-94.0) 01/13/18 06:05 MCH 31.8 pg (27.0-31.0) H 01/13/18 06:05 MCHC 34.6 g/dL (32.0-36.0) 01/13/18 06:05 RDW 14.3 % (12.0-15.0) 01/13/18 06:05 Plt Count 255 10^3/uL (130-450) 01/13/18 06:05 MPV 7.1 fL (7.4-11.4) L 01/13/18 06:05 Neut # Not Reportable 01/10/18 09:45 Lymph # Not Reportable 01/10/18 09:45 [place] # Not Reportable 01/10/18 09:45 Eos # Not Reportable 01/10/18 09:45 Baso # Not Reportable 01/10/18 09:45 Absolute Nucleated RBC Not Reportable 01/10/18 09:45 Total Counted 100 01/10/18 09:45 Band Neuts % (Manual) 17 % (0-10) H 01/10/18 09:45 Abnorm Lymph % (Manual) 0 % 01/10/18 09:45 Metamyelocytes % 3 % (-0) H 01/10/18 09:45 Nucleated RBC % Not Reportable 01/10/18 09:45 Neutrophils # (Manual) 15.0 10^3/uL (1.5-6.6) H 01/10/18 09:45 Lymphocytes # (Manual) 0.3 10^3/uL (1.5-3.5) L 01/10/18 09:45 Monocytes # (Manual) 0.5 10^3/uL (0.0-1.0) 01/10/18 09:45 Eosinophils # (Manual) 0.0 10^3/uL (0-0.7) 03/17/18 09:45 Basophils # (Manual) 0.0 10^3/uL (0-0.1) 01/10/18 09:45 Differential Comment MANUAL DIFFERENTIAL 01/10/18 09:45 WBC Morphology 1+ VACUOLATION (NORMAL) 01/10/18 09:45 Platelet Estimate NORMAL (130-450,000) (NORMAL) 01/10/18 09:45 Platelet Morphology NORMAL APPEARANCE (NORMAL) 01/10/18 09:45 RBC Morph Micro Appear NORMAL APPEARANCE (NORMAL) 01/10/18 09:45 Sodium 137 mmol/L (135-145) 01/13/18 06:05 Potassium 4.1 mmol/L (3.5-5.0) 01/13/18 06:05 Chloride 105 mmol/L (101-111) 01/13/18 06:05 Carbon Dioxide 23 mmol/L (21-32) 01/13/18 06:05 Anion Gap 9.0 (6-13) 01/13/18 06:05 BUN 9 mg/dL (6-20) 01/13/18 06:05 Creatinine 0.9 mg/dL (0.6-1.2) 01/13/18 06:05 Estimated GFR (MDRD) 83 (>89) L 01/13/18 06:05 Glucose 113 mg/dL (70-100) H 01/13/18 06:05 Lactic Acid 1.8 mmol/L (0.5-2.2) 01/10/18 09:45 Calcium 8.6 mg/dL (8.5-10.3) 01/13/18 06:05 Urine Color YELLOW 01/10/18 11:20 Urine Clarity SL. CLOUDY (CLEAR) 01/10/18 11:20 Urine pH 6.0 PH (5.0-7.5) 01/10/18 11:20 Ur Specific [place] 1.015 (1.002-1.030) 01/10/18 11:20 Urine Protein 100 mg/dL (NEGATIVE) H 01/10/18 11:20 Urine Glucose (UA) NEGATIVE mg/dL (NEGATIVE) 01/10/18 11:20 Urine Ketones NEGATIVE mg/dL (NEGATIVE) 01/10/18 11:20 Urine Occult Blood LARGE (NEGATIVE) H 01/10/18 11:20 Urine Nitrite NEGATIVE (NEGATIVE) 01/10/18 11:20 Urine Bilirubin NEGATIVE (NEGATIVE) 01/10/18 11:20 Urine Urobilinogen 0.2 (NORMAL) E.U./dL (NORMAL) 01/10/18 11:20 Ur Leukocyte Esterase MODERATE (NEGATIVE) H 01/10/18 11:20 Urine RBC TNTC /HPF (0-5) H 01/10/18 11:20 Urine WBC >25 /HPF (0-3) H 01/10/18 11:20 Urine WBC Clumps PRESENT 01/10/18 11:20 Ur Squamous Epith Cells NONE SEEN (<= Few) 01/10/18 11:20 Urine Bacteria Rare /HPF (None Seen) 01/10/18 11:20 Ur Microscopic Review INDICATED 01/10/18 11:20 Urine Culture Comments INDICATED 01/10/18 11:20
[2018-01-13] MEDS: TAMSULOSIN 0.4 MG CAPSULE PO SCH (18:57)
[2018-01-13] MEDS ORDERED: LEVETIRACETAM 375 MG PO SCH (21:00)
[2018-01-13] MEDS: levoFLOXacin 250 MG TABLET PO SCH (22:29)
[2018-01-14] MEDS: SODIUM CHLORIDE FLUSH 0.9% 10 ML SYRINGE IVP SCH ×2 (00:09→10:01)
[2018-01-14] MEDS: BACITRACIN OINT TOP PRN (01:32)
[2018-01-14 06:22] LABS: MEAN CORPUSCULAR HEMOGLOBIN 31.1 pg (27.0-31.0); MEAN CORPUSCULAR HGB CONC 34.3 g/dL (32.0-36.0); MEAN CORPUSCULAR VOLUME 90.7 fL (80.0-94.0); MEAN PLATELET VOLUME 6.7 fL (7.4-11.4); RED BLOOD COUNT 4.18 10^6/uL (4.70-6.10); WHITE BLOOD COUNT 7.6 x10^3/uL (4.8-10.8)
[2018-01-14 06:30] LABS: CALCIUM 8.8 mg/dL (8.5-10.3); CREATININE 0.9 mg/dL (0.6-1.2)
[2018-01-14] MEDS: POTASSIUM CHLORIDE 20 MEQ TABLET PO SCH (10:00)
[2018-01-14] MEDS: carBAMazepine 200 MG TABLET PO SCH ×2 (10:00→11:29)
[2018-01-14] MEDS: levETIRAcetam 250 MG TABLET PO SCH (10:00)
[2018-01-14] MEDS: hydroCHLOROthiazide 25 MG TABLET PO SCH (10:00)
[2018-01-14] MEDS: FINASTERIDE 5 MG TABLET PO SCH (10:00)
[2018-01-14] MEDS: SACCHAROMYCES BOULARDII 250 MG CAPSULE PO SCH (10:00)
[2018-01-14] MEDS: LISINOPRIL 20 MG TABLET PO SCH (10:01)
[2018-01-14] MEDS: levoFLOXacin 250 MG TABLET PO SCH (10:01)
[2018-01-14] MEDS: FAMOTIDINE 20 MG TABLET PO SCH (10:01)
[2018-01-14] MEDS: POLYETHYLENE GLYCOL 3350 17 GM PACKET PO SCH (10:01)
--- NOTE | 2018-01-14 11:34 | Discharge Plan ---
Discharge Plan Disposition: Home, Self Care Condition: Fair Prescriptions: Finasteride 5 mg PO DAILY #30 tablet levoFLOXacin [Levaquin] 750 mg PO DAILY #38 tablet Saccharomyces Boulardii [Florastor] 250 mg PO BID #76 capsule Tamsulosin [Flomax] 0.4 mg PO 1700 #30 capsule Diet: Regular Activity Restrictions: Activity as Tolerated Shower Restrictions: No Driving Restrictions: No Assistance Devices: Walker Weight Bearing: Full Weight Instruction Topics: ED Catheter Care Taylor Additional Instructions or Follow Up instructions: You presented to the emergency department because of blood in her Taylor catheter and generalized weakness. You were found to have a urinary tract infection and then also found to have infection in her bloodstream. You were treated with IV antibiotics and fluids over the course of the last few days in the hospital. You now seem to have improved and the infection appears to be resolving. The source of your infection appears to be from your prostate and we believe that you have prostatitis. In order to treat prostatitis you need a long course of antibiotics for 6 weeks. You have completed 4 days of treatment here in the hospital but will need an additional 38 days of treatment with antibiotics. I have prescribed you Levaquin which she will take daily for the next 38 days to completely eradicate the bacteria. He will continue to use her Taylor catheter and will follow up with urology in regards to your BPH and urinary retention. I have given you prescriptions for Flomax and finasteride which are medications that will help with your urinary retention and BPH. You have also been given a prescription for Florastor which is a probiotic and you should take it along with the antibiotics for the next 38 days to prevent any GI issues. You have also been prescribed a walker to help with your ambulation and stability. No Smoking: If you smoke, Please STOP! Call for help. Follow-up with: Provider,Other [Primary Care Provider] - Within 3 Days
[2018-01-14 12:58] VITALS: BP 112/68
--- NOTE | 2018-01-14 18:29 | DISCHARGE SUMMARY ---
Discharge Summary Admit Date: 01/10/18 Discharge Date: 01/14/18 Discharging Provider: Dean Clifford MD Primary Care Provider: Dr Reyes [place] Code Status: Attempt Resuscitation Condition at Discharge: Fair Discharge Disposition: 01 Home, Self Care - DIAGNOSES Admission Diagnoses: 1. Prostatitis 2. Hypertension 3. Hypercholesterolemia 4. BPH Discharge Diagnoses with Status of Each Condition: 1. Gram-negative bacteremia: Stable 2. Acute prostatitis: Stable 3. Gross hematuria: Stable 4. Benign prostatic hyperplasia with lower urinary tract symptoms: Stable 5. Hypertension: Stable - HPI History of Present Illness: Mr. Mark Guevara is a pleasant 72-year-old gentleman with a history of prostatic hyperplasia who normally has a indwelling Taylor catheter. Yesterday he went down to the [place] where the catheter was replaced. He began to have bleeding afterwards and came to the emergency department at [facility] when the bleeding did not stop. He was evaluated treated and was about to be discharged when he started to become hypotensive and show signs that he may be becoming septic. A repeat CBC found the patient had to have developed a bandemia and an elevated leukocyte count and he is therefore admitted with a diagnosis of prostatitis/urosepsis. - HOSPITAL COURSE Hospital Course: Patient was admitted for prostatitis and started on IV antibiotics. His blood cultures returned positive for Klebsiella oxytoca and urine cultures also grew Klebsiella oxytoca along with enterococcus faecalis. Patient was susceptible to third generation cephalosporins and therefore was continued on a third generation cephalosporin while he was hospitalized. The patient had significant improvement in both his symptoms as well as his leukocytosis which resolved. The patient continued to have an indwelling Taylor catheter while he was hospitalized and did have some intermittent hematuria. Given his diagnosis of prostatitis the patient will be treated with 6 weeks of antibiotics. We chose to treat him with Levaquin which would be effective against both Klebsiella oxytoca and Enterococcus faecalis and has good bioavailability therefore was felt to be a good antibiotic choice for bacteremia as well as for prostatitis. The patient will continue Levaquin for 38 additional days to complete treatment for prostatitis. At the time of discharge the patient was in stable condition. He was seen by physical therapy prior to discharge and was weak requiring a walker but was well enough to return to independent living. The patient was prescribed a walker. The patient was also prescribed probiotics to take along with his antibiotic. The patient was to continue with Flomax and finasteride for his BPH and his Taylor catheter was left in. The patient is to follow-up with his primary care physician Dr. Reyes. Patient was given phone numbers for both his PCP and a urologist at the [place] he will need to call and make appointments on his own he was instructed to make an appointment with urology in 2 weeks. - ALLERGIES Allergies/Adverse Reactions: Allergies Allergy/AdvReac Type Severity Reaction Status Date / Time mephobarbital [From Ohbaral] Allergy Unknown Verified 01/10/18 02:38 - MEDICATIONS Home Medications: Ambulatory Orders Medication Instructions Recorded Confirmed Lisinopril 10 mg PO 1700 01/31/17 01/10/18 carBAMazepine [Carbamazepine] 200 mg PO 0800,1200,1700 01/31/17 01/10/18 hydroCHLOROthiazide 25 mg PO DAILY 01/31/17 01/10/18 [Hydrochlorothiazide] levETIRAcetam [Levetiracetam] 375 mg PO BID 01/31/17 01/10/18 Ascorbic Acid [Vitamin C] 1,000 mg PO DAILY 01/10/18 01/10/18 Cholecalciferol [Vitamin D3] 5,000 units PO DAILY 01/10/18 01/10/18 [place]-3 Acid Ethyl Esters [Lovaza] 1 gm PO DAILY 01/10/18 01/10/18 carBAMazepine [Carbamazepine] 400 mg PO QPM 01/10/18 01/10/18 Finasteride 5 mg PO DAILY #30 tablet 01/14/18 Saccharomyces Boulardii [Florastor] 250 mg PO BID #76 capsule 01/14/18 Tamsulosin [Flomax] 0.4 mg PO 1700 #30 capsule 01/14/18 levoFLOXacin [Levaquin] 750 mg PO DAILY #38 tablet 01/14/18 - PHYSICAL EXAM AT DISCHARGE General Appearance: positive: No acute distress, Alert Eyes Bilateral: positive: Normal inspection, PERRL, EOMI, No lid inflammation, Conjunctivae nml, No scleral icterus, Other (Twitching of his eyes) ENT: positive: ENT inspection nml, Pharynx nml, No signs of dehydration. negative: Purulent nasal drainage, Pharyngeal erythema, Oral lesions Neck: positive: Nml inspection, Thyroid nml, No JVD, Trachea midline. negative : Thyromegaly, Lymphadenopathy (R), Lymphadenopathy (L), Stiff neck, Carotid bruit, Tracheal deviation Respiratory: positive: Chest non-tender, No respiratory distress, Breath sounds nml. negative: Wheezes, Rales, Rhonchi Cardiovascular: positive: Regular rate & rhythm, No murmur, No gallop Peripheral Pulses: positive: 2+ Abdomen: positive: Non-tender, No organomegaly, Nml bowel sounds, No distention. negative: Guarding, Rebound, Hepatomegaly Back: positive: Nml inspection. negative: CVA tenderness (R), CVA tenderness (L ) Skin: positive: Color nml, No rash, Warm. negative: Cyanosis, Diaphoresis, Pallor, Skin rash Extremities: positive: Non-tender, Full ROM, Nml appearance, No pedal edema Neurologic/Psychiatric: positive: Oriented x3, CN's nml (2-12), Motor nml, Sensation nml - LABS Result Diagrams: 01/14/18 06:15 01/14/18 06:15 Other Lab Results: Laboratory Results WBC 7.6 x10^3/uL (4.8-10.8) 01/14/18 06:15 RBC 4.18 10^6/uL (4.70-6.10) L 01/14/18 06:15 Hgb 13.0 g/dL (14.0-18.0) L 01/14/18 06:15 Hct 37.9 % (42.0-52.0) L 01/14/18 06:15 MCV 90.7 fL (80.0-94.0) 01/14/18 06:15 MCH 31.1 pg (27.0-31.0) H 01/14/18 06:15 MCHC 34.3 g/dL (32.0-36.0) 01/14/18 06:15 RDW 14.0 % (12.0-15.0) 01/14/18 06:15 Plt Count 292 10^3/uL (130-450) 01/14/18 06:15 MPV 6.7 fL (7.4-11.4) L 01/14/18 06:15 Neut # Not Reportable 01/10/18 09:45 Lymph # Not Reportable 01/10/18 09:45 [place] # Not Reportable 01/10/18 09:45 Eos # Not Reportable 01/10/18 09:45 Baso # Not Reportable 01/10/18 09:45 Absolute Nucleated RBC Not Reportable 01/10/18 09:45 Total Counted 100 01/10/18 09:45 Band Neuts % (Manual) 17 % (0-10) H 01/10/18 09:45 Abnorm Lymph % (Manual) 0 % 01/10/18 09:45 Metamyelocytes % 3 % (-0) H 01/10/18 09:45 Nucleated RBC % Not Reportable 01/10/18 09:45 Neutrophils # (Manual) 15.0 10^3/uL (1.5-6.6) H 01/10/18 09:45 Lymphocytes # (Manual) 0.3 10^3/uL (1.5-3.5) L 01/10/18 09:45 Monocytes # (Manual) 0.5 10^3/uL (0.0-1.0) 01/10/18 09:45 Eosinophils # (Manual) 0.0 10^3/uL (0-0.7) 01/10/18 09:45 Basophils # (Manual) 0.0 10^3/uL (0-0.1) 01/10/18 09:45 Differential Comment MANUAL DIFFERENTIAL 01/10/18 09:45 WBC Morphology 1+ VACUOLATION (NORMAL) 01/10/18 09:45 Platelet Estimate NORMAL (130-450,000) (NORMAL) 01/10/18 09:45 Platelet Morphology NORMAL APPEARANCE (NORMAL) 01/10/18 09:45 RBC Morph Micro Appear NORMAL APPEARANCE (NORMAL) 01/10/18 09:45 Sodium 135 mmol/L (135-145) 01/14/18 06:15 Potassium 3.8 mmol/L (3.5-5.0) 01/14/18 06:15 Chloride 103 mmol/L (101-111) 01/14/18 06:15 Carbon Dioxide 22 mmol/L (21-32) 01/14/18 06:15 Anion Gap 10.0 (6-13) 01/14/18 06:15 BUN 10 mg/dL (6-20) 01/14/18 06:15 Creatinine 0.9 mg/dL (0.6-1.2) 01/14/18 06:15 Estimated GFR (MDRD) 83 (>89) L 01/14/18 06:15 Glucose 104 mg/dL (70-100) H 01/14/18 06:15 Lactic Acid 1.8 mmol/L (0.5-2.2) 01/10/18 09:45 Calcium 8.8 mg/dL (8.5-10.3) 01/14/18 06:15 Urine Color YELLOW 01/10/18 11:20 Urine Clarity SL. CLOUDY (CLEAR) 01/10/18 11:20 Urine pH 6.0 PH (5.0-7.5) 01/10/18 11:20 Ur Specific [place] 1.015 (1.002-1.030) 01/10/18 11:20 Urine Protein 100 mg/dL (NEGATIVE) H 01/10/18 11:20 Urine Glucose (UA) NEGATIVE mg/dL (NEGATIVE) 01/10/18 11:20 Urine Ketones NEGATIVE mg/dL (NEGATIVE) 01/10/18 11:20 Urine Occult Blood LARGE (NEGATIVE) H 01/10/18 11:20 Urine Nitrite NEGATIVE (NEGATIVE) 01/10/18 11:20 Urine Bilirubin NEGATIVE (NEGATIVE) 01/10/18 11:20 Urine Urobilinogen 0.2 (NORMAL) E.U./dL (NORMAL) 01/10/18 11:20 Ur Leukocyte Esterase MODERATE (NEGATIVE) H 01/10/18 11:20 Urine RBC TNTC /HPF (0-5) H 01/10/18 11:20 Urine WBC >25 /HPF (0-3) H 01/10/18 11:20 Urine WBC Clumps PRESENT 01/10/18 11:20 Ur Squamous Epith Cells NONE SEEN (<= Few) 01/10/18 11:20 Urine Bacteria Rare /HPF (None Seen) 01/10/18 11:20 Ur Microscopic Review INDICATED 01/10/18 11:20 Urine Culture Comments INDICATED 01/10/18 11:20 - DIAGNOSTIC IMAGING Diagnostic Imaging Results: Final report reviewed Diagnostic Imaging Results Comments: Chest x-ray Impression: No acute cardiopulmonary abnormality. - FOLLOW UP Follow Up: Patient will follow up with his primary care physician and urology within the next 2 weeks. Patient was given the phone number to make appointments with both at the [place]. The patient will be continuing on oral antibiotics for prostatitis and bacteremia for 38 days he was given a prescription for the antibiotics. The patient continues to have an indwelling Taylor catheter and is on Flomax and finasteride. - TIME SPENT Time Spent in Discharge (Minutes): 70
== END 2018-01-14 14:40 | disposition home or self-care (01) | DRG 872 ==
LOC: ED 02:32 → MS2 13:04
PROVIDERS: ADMIT Hospitalist; ATTEND Internal Medicine
DX: A41.89 Other specified sepsis (principal); N41.0 Acute prostatitis; N13.8 Other obstructive and reflux uropathy; B95.2 Enterococcus as the cause of diseases classified elsewhere; R31.0 Gross hematuria; I95.9 Hypotension, unspecified; T83.091A Other mechanical complication of indwelling urethral catheter, initial encounter; Y84.6 Urinary catheterization as the cause of abnormal reaction of the patient, or of later complication, without mention of misadventure at the time of the procedure; N40.1 Benign prostatic hyperplasia with lower urinary tract symptoms; I10 Essential (primary) hypertension; E78.00 Pure hypercholesterolemia, unspecified; G40.909 Epilepsy, unspecified, not intractable, without status epilepticus
CPT/HCPCS: 36415; 51702; 71045; 80048; 81001; 81003; 83605; 85025; 87040; 87077; 87086; 96361; 96365; 96372; 99284

== ENCOUNTER 2018-07-11 22:50 | Emergency (ER) | payer OTHER ==
--- NOTE | 2018-07-11 23:07 | ED Physician Documentation ---
PD HPI MALE - Stated complaint Stated Complaint: CATHETER BLOCKED - History obtained from History obtained from: Patient - History of Present Illness Timing - onset: Today Timing - details: Gradual onset, Still present Associated symptoms: Unable to urinate PD HPI MALE CONTRIB FACTORS: Indwelling catheter Similar symptoms before: Work up / diagnostics Recently seen: Not recently seen - Additional information Additional information: Patient is a 72 year old male who is presenting to the emergency department for lower abdominal pain. Patient has an indwelling walsh and feels like it is blocked. Patient states that symptoms have been getting progressively worse th roughout the day. Patient denies any nausea, vomiting, fever or chills Review of Systems Ten Systems: 10 systems reviewed and negative : reports: Unable to Void PD PAST MEDICAL HISTORY - Past Medical History Cardiovascular: Hypertension Respiratory: None Endocrine/Autoimmune: None : Benign prostate hypertrophy, Indwelling catheter HEENT: None Psych: None Musculoskeletal: None Derm: None - Past Surgical History Past Surgical History: No Ortho: Other (The patient says he has had minor surgeries on his foot and hand.) Derm: Skin grafts - Present Medications Home Medications: Ambulatory Orders Medication Instructions Recorded Confirmed Lisinopril 10 mg PO 1700 01/31/17 01/10/18 carBAMazepine [Carbamazepine] 200 mg PO 0800,1200,1700 01/31/17 01/10/18 hydroCHLOROthiazide 25 mg PO DAILY 01/31/17 01/10/18 [Hydrochlorothiazide] levETIRAcetam [Levetiracetam] 375 mg PO BID 01/31/17 01/10/18 Ascorbic Acid [Vitamin C] 1,000 mg PO DAILY 01/10/18 01/10/18 Cholecalciferol [Vitamin D3] 5,000 units PO DAILY 01/10/18 01/10/18 [place]-3 Acid Ethyl Esters [Lovaza] 1 gm PO DAILY 01/10/18 01/10/18 carBAMazepine [Carbamazepine] 400 mg PO QPM 01/10/18 01/10/18 Finasteride 5 mg PO DAILY #30 tablet 01/14/18 Saccharomyces Boulardii [Florastor] 250 mg PO BID #76 capsule 01/14/18 Tamsulosin [Flomax] 0.4 mg PO 1700 #30 capsule 01/14/18 levoFLOXacin [Levaquin] 750 mg PO DAILY #38 tablet 01/14/18 - Allergies Allergies/Adverse Reactions: Allergies Allergy/AdvReac Type Severity Reaction Status Date / Time mephobarbital [From Mebaral] Allergy Unknown Verified 01/10/18 02:38 - Social History Does the pt smoke?: No Smoking Status: Never smoker Does the pt drink ETOH?: No Does the pt have substance abuse?: No - Immunizations Immunizations are current?: No Immunizations: TDAP current <10years - POLST Patient has POLST: No POLST Status: Full Code PD ED PE NORMAL - Vitals Vital signs reviewed: Yes - General General: Alert and oriented X 3 - HEENT HEENT: Atraumatic - Cardiac Cardiac: RRR - Respiratory Respiratory: No respiratory distress - Derm Derm: Normal color - Extremities Extremities: No deformity - Neuro Neuro: Alert and oriented X 3 Eye Opening: Spontaneous PD ED PE EXPANDED - General General: Alert, In Pain Results - Vitals Vitals: Vital Signs - 24 hr 07/11/18 07/11/18 07/12/18 22:50 23:36 00:14 Temperature 36.6 C Heart Rate 90 75 71 Respiratory 24 16 16 Rate Blood Pressure 185/117 H 125/68 125/85 H O2 Saturation 99 96 97 07/12/18 01:08 Temperature 36.5 C Heart Rate 69 Respiratory 18 Rate Blood Pressure 113/63 O2 Saturation 98 Oxygen O2 Source Room air - Labs Labs: Laboratory Tests 07/11/18 23:30 Urine Color YELLOW Urine Clarity CLEAR Urine pH 6.0 Ur Specific [place] 1.015 Urine Protein NEGATIVE Urine Glucose (UA) NEGATIVE Urine Ketones NEGATIVE Urine Occult Blood LARGE H Urine Nitrite NEGATIVE Urine Bilirubin NEGATIVE Urine Urobilinogen 0.2 (NORMAL) Ur Leukocyte Esterase NEGATIVE Urine RBC TNTC H Urine WBC 0-3 Ur Squamous Epith Cells NONE SEEN Urine Bacteria Rare Ur Microscopic Review INDICATED Urine Culture Comments NOT INDICATED PD MEDICAL DECISION MAKING - ED course Complexity details: reviewed old records, reviewed results, re-evaluated patient, considered differential, d/w patient ED course: Patient was seen and examined at bedside. Patient's walsh was removed and a new walsh was placed and clots were evacuated. Patient had no sign of urinary tract infection. Patient required no further work up and was stable for discharge with outpatient follow up. - Sepsis Event Vital Signs: Vital Signs - 24 hr 07/11/18 07/11/18 07/12/18 22:50 23:36 00:14 Temperature 36.6 C Heart Rate 90 75 71 Respiratory 24 16 16 Rate Blood Pressure 185/117 H 125/68 125/85 H O2 Saturation 99 96 97 07/12/18 01:08 Temperature 36.5 C Heart Rate 69 Respiratory 18 Rate Blood Pressure 113/63 O2 Saturation 98 Oxygen O2 Source Room air Departure - Departure Disposition: 01 Home, Self Care Clinical Impression: Obstructed Walsh catheter Condition: Good Instructions: ED Catheter Care Walsh Follow-Up: primary,care provider [Other] - As Needed Comments: Your symptoms today are being caused by a blocked walsh catheter which has been replaced. there is no sign of infection. You should follow up with your doctor for further care. You may return to the emergency department at any time for new, worsening or uncontrollable symptoms. Discharge Date/Time: 07/12/18 01:19
[2018-07-11 23:42] LABS: BILIRUBIN,URINE NEGATIVE (NEGATIVE); GLUCOSE, URINE (UA) NEGATIVE (NEGATIVE); KETONES,URINE (UA) NEGATIVE (NEGATIVE); LEUKOCYTE ESTERASE, URINE NEGATIVE (NEGATIVE); NITRITE,URINE NEGATIVE (NEGATIVE); OCCULT BLOOD,URINE LARGE (NEGATIVE); PROTEIN,URINE NEGATIVE (NEGATIVE); UROBILINOGEN,URINE 0.2 (NORMAL) E.U./dL (NORMAL)
[2018-07-11 23:48] LABS: BACTERIA,URINE Rare /HPF (None Seen); CLARITY,URINE CLEAR (CLEAR); RBC,URINE TNTC /HPF (0-5); SQUAMOUS EPITHELIAL CELL,UR NONE SEEN (<= Few)
[2018-07-12 01:13] VITALS: BP 113/63
== END 2018-07-12 01:19 | disposition home or self-care (01) ==
LOC: ED 22:50
DX: T83.091A Other mechanical complication of indwelling urethral catheter, initial encounter (principal); R33.8 Other retention of urine; I10 Essential (primary) hypertension; N40.1 Benign prostatic hyperplasia with lower urinary tract symptoms; Z96.0 Presence of urogenital implants
CPT/HCPCS: 51702; 81001; 81003; 87086; 99283

== ENCOUNTER 2024-04-26 20:10 | Emergency (ER) | payer OTHER ==
--- NOTE | 2024-04-26 20:41 | ED Physician Documentation ---
PD HPI NVD - Stated complaint Stated Complaint: VOMITING - Chief complaint Chief Complaint: Abd Pain - History obtained from History obtained from: Patient - Additonal information Additional information: Patient is a 78-year-old male with a history of hypertension, hyperlipidemia presenting for evaluation of nausea and vomiting since 2:00 this afternoon. Patient states he ate some tacos with tuna on it and started choking and needed to vomit. He reports having several episodes of emesis. He says since that time he has had ongoing nausea and emesis with even drinking water. He denies that he feels like something is stuck in his throat and has been able to swallow his secretions. He denies any discomfort in his chest.He reports a recent fall and does have rib fractures on the right side. Denies abdominal pain, diarrhea.Denies a history of esophageal food impactions or acid reflux in the past. Review of Systems Constitutional: denies: Fever Cardiac: denies: Chest pain / pressure Respiratory: denies: Dyspnea GI: reports: Nausea, Vomiting. denies: Abdominal Pain PD PAST MEDICAL HISTORY - Past Medical History Past Medical History: Yes Cardiovascular: Hypertension Respiratory: None Neuro: Seizure disorder Endocrine/Autoimmune: None : Benign prostate hypertrophy, Indwelling catheter HEENT: None Psych: None Musculoskeletal: None Derm: None - Past Surgical History Past Surgical History: No Ortho: Other Derm: Skin grafts - Present Medications Home Medications: Ambulatory Orders Medication Instructions Recorded Confirmed carBAMazepine [Carbamazepine] 200 mg PO 0800,1200,1700 01/31/17 01/10/18 hydroCHLOROthiazide 25 mg PO DAILY 01/31/17 01/10/18 [Hydrochlorothiazide] levETIRAcetam [Levetiracetam] 375 mg PO BID 01/31/17 01/10/18 lisinopriL [Lisinopril] 10 mg PO 1700 01/31/17 01/10/18 Ascorbic Acid [Vitamin C] 1,000 mg PO DAILY 01/10/18 01/10/18 Cholecalciferol [Vitamin D3] 5,000 units PO DAILY 01/10/18 01/10/18 [place]-3 Acid Ethyl Esters [Lovaza] 1 gm PO DAILY 01/10/18 01/10/18 carBAMazepine [Carbamazepine] 400 mg PO QPM 01/10/18 01/10/18 Finasteride 5 mg PO DAILY #30 tablet 01/14/18 Saccharomyces Boulardii [Florastor] 250 mg PO BID #76 capsule 01/14/18 Tamsulosin [Flomax] 0.4 mg PO 1700 #30 capsule 01/14/18 levoFLOXacin [Levaquin] 750 mg PO DAILY #38 tablet 01/14/18 Ondansetron Odt [Zofran] 4 mg TL Q6H PRN #10 tablet 04/26/24 - Allergies Allergies/Adverse Reactions: Allergies Allergy/AdvReac Type Severity Reaction Status Date / Time mephobarbital [From Mebaral] Allergy Unknown Verified 04/26/24 20:24 phenobarbital Allergy Unknown Verified 04/26/24 20:24 - Social History Does the pt smoke?: No Smoking Status: Never smoker Does the pt drink ETOH?: No Does the pt have substance abuse?: No - Immunizations Immunizations are current?: No Immunizations: TDAP current <10years - POLST Patient has POLST: No POLST Status: Full Code PD ED PE NORMAL - General General: Alert and oriented X 3, No acute distress, Well developed/nourished - HEENT HEENT: Atraumatic - Neck Neck: Supple, no meningeal sign - Cardiac Cardiac: RRR, Strong equal pulses - Respiratory Respiratory: No respiratory distress, Clear bilaterally - Abdomen Abdomen: Normal bowel sounds, Soft, Non tender, Non distended - Derm Derm: Warm and dry - Neuro Neuro: Alert and oriented X 3, Normal speech Results - Vitals Vitals: Vital Signs - 24 hr 04/26/24 04/26/24 04/26/24 20:18 21:00 22:20 Temperature 36.3 C L Heart Rate 71 66 68 Respiratory 16 16 18 Rate Blood Pressure 165/94 H 168/88 H O2 Saturation 100 100 98 Oxygen O2 Source Room air - Labs Labs: Laboratory Tests 04/26/24 04/26/24 20:53 20:53 WBC 6.2 RBC 4.02 L Hgb 13.2 L Hct 38.6 L MCV 96.0 H MCH 32.8 H MCHC 34.2 RDW 13.3 Plt Count 247 MPV 9.2 Neut # (Auto) 5.0 Lymph # (Auto) 0.9 L [place] # (Auto) 0.3 Eos # (Auto) 0.0 Baso # (Auto) 0.0 Absolute Nucleated RBC 0.00 Nucleated RBC % 0.0 Sodium 138 Potassium 3.3 L Chloride 102 Carbon Dioxide 25 Anion Gap 11.0 BUN 13 Creatinine 0.8 Estimated GFR (MDRD) 93 Glucose 130 H Calcium 10.0 Total Bilirubin 0.5 AST 16 ALT 15 Alkaline Phosphatase 70 Total Protein 6.9 Albumin 4.3 Globulin 2.6 Albumin/Globulin Ratio 1.7 Lipase 27 PD Medical Decision Making - ED course Complexity details: reviewed results, re-evaluated patient, d/w patient ED course: Patient is a 78-year-old male With nausea and vomiting starting this afternoon. No abdominal pain and benign abdominal exam. History and exam do not suggest esophageal food impaction. Speech is normal and he denies feeling like anything is stuck in his throat.No chest pain. Patient was given IV Zofran. CBC and chemistries were reviewed. Potassium 3.3. Patient feeling better after Zofran and tolerating p.o. challenge. Repeat abdominal exam is benign. Patient given small amount of Zofran and instructed on a bland diet. Counseled on concerning symptoms to return for. Departure - Departure Disposition: 01 Home, Self Care Clinical Impression: Nausea & vomiting Condition: Stable Instructions: ED Nausea Vomiting Prescriptions: Ondansetron Odt [Zofran] 4 mg TL Q6H PRN #10 tablet PRN Reason: Nausea / Vomiting Comments: You were evaluated for nausea and vomiting. Your potassium was slightly low but we did give you potassium replacement. You are also given an antinausea medicine and you have been able to keep down liquids which is a good sign. Otherwise your lab work is reassuring and you are not having any pain which is also a good sign. I have sent a prescription for an antinausea medication to [facility] in [place]. I would recommend starting with a bland diet tomorrow and advancing if you are able to tolerate the bland foods. Return to the ER if you develop worsening symptoms. Forms: PCP List Discharge Date/Time: 04/26/24 22:21
[2024-04-26] MEDS: ONDANSETRON 4 MG/2 ML VIAL IVP STA (20:51)
[2024-04-26 20:58] LABS: BASOPHILS % (AUTO) 0.3 %; EOSINOPHILS % (AUTO) 0.2 %; HCT - HEMATOCRIT 38.6 % (42.0-52.0); HGB - HEMOGLOBIN 13.2 g/dL (14.0-18.0); LYMPHOCYTES # (AUTO) 0.9 10^3/uL (1.5-3.5); MEAN CORPUSCULAR HEMOGLOBIN 32.8 pg (27.0-31.0); MEAN CORPUSCULAR HGB CONC 34.2 g/dL (32.0-36.0); MEAN PLATELET VOLUME 9.2 fL (7.4-11.4); MONOCYTES # (AUTO) 0.3 10^3/uL (0.0-1.0); MONOCYTES % (AUTO) 4.6 %; NEUTROPHILS % (AUTO) 80.4 %; PLT - PLATELET COUNT 247 10^3/uL (130-450); RED BLOOD COUNT 4.02 10^6/uL (4.70-6.10); RED CELL DISTRIBUTION WIDTH 13.3 % (12.0-15.0); WHITE BLOOD COUNT 6.2 x10^3/uL (4.8-10.8)
[2024-04-26 21:19] LABS: ALBUMIN 4.3 g/dL (3.2-5.5); ALBUMIN/GLOBULIN RATIO 1.7 (1.0-2.2); BILIRUBIN,TOTAL 0.5 mg/dL (0.2-1.0); CREATININE 0.8 mg/dL (0.6-1.3); POTASSIUM 3.3 mmol/L (3.5-4.5); TOTAL PROTEIN 6.9 g/dL (6.4-8.9)
[2024-04-26] MEDS: POTASSIUM BICARB 25 MEQ TABLET PO ONE (21:33)
[2024-04-26] MEDS: ONDANSETRON ODT 4 MG Prepack 2 TL PRN (22:16)
[2024-04-26 22:24] VITALS: BP 168/88; O2SAT 98
== END 2024-04-26 22:21 | disposition home or self-care (01) ==
LOC: ED 20:10
DX: R11.2 Nausea with vomiting, unspecified (principal); I10 Essential (primary) hypertension; E78.5 Hyperlipidemia, unspecified; Z79.899 Other long term (current) drug therapy
CPT/HCPCS: 36415; 80053; 83690; 85025; 96374; 99283; 99284; A9270

== ENCOUNTER 2024-05-05 01:43 | Outpatient (CLI) | payer OTHER | END 2024-05-05 23:59 | disposition critical access hospital (66) | LOC: EMS 01:43 | DX: R31.9 Hematuria, unspecified (principal); R33.9 Retention of urine, unspecified; Z96.0 Presence of urogenital implants | CPT/HCPCS: A0425; A0429 ==

== ENCOUNTER 2024-05-05 02:18 | Emergency (ER) | payer OTHER ==
--- NOTE | 2024-05-05 02:24 | ED Physician Documentation ---
PD HPI MALE - Stated complaint Stated Complaint: - History obtained from History obtained from: Patient - Additional information Additional information: HPI from patient. Patient has indwelling Walsh catheter. He says he has had this for many years. He says that earlier this evening, he noted a few blood clots in the collecting system (tubing, bag), and shortly thereafter, he had no urine output despite increasing suprapubic pressure and urge to urinate. He intentionally stopped drinking any fluids for fear of worsening the pain associated with urinary retention (patient has had urinary retention in the past), and comes to the emergency department for this. PD PAST MEDICAL HISTORY - Past Medical History Cardiovascular: Hypertension Respiratory: None Neuro: Seizure disorder Endocrine/Autoimmune: None : Benign prostate hypertrophy, Indwelling catheter HEENT: None Psych: None Musculoskeletal: None Derm: None - Past Surgical History Past Surgical History: No Ortho: Other Derm: Skin grafts - Present Medications Home Medications: Ambulatory Orders Medication Instructions Recorded Confirmed carBAMazepine [Carbamazepine] 200 mg PO 0800,1200,1700 01/31/17 01/10/18 hydroCHLOROthiazide 25 mg PO DAILY 01/31/17 01/10/18 [Hydrochlorothiazide] levETIRAcetam [Levetiracetam] 375 mg PO BID 01/31/17 01/10/18 lisinopriL [Lisinopril] 10 mg PO 1700 01/31/17 01/10/18 Ascorbic Acid [Vitamin C] 1,000 mg PO DAILY 01/10/18 01/10/18 Cholecalciferol [Vitamin D3] 5,000 units PO DAILY 01/10/18 01/10/18 [place]-3 Acid Ethyl Esters [Lovaza] 1 gm PO DAILY 01/10/18 01/10/18 carBAMazepine [Carbamazepine] 400 mg PO QPM 01/10/18 01/10/18 Finasteride 5 mg PO DAILY #30 tablet 01/14/18 Saccharomyces Boulardii [Florastor] 250 mg PO BID #76 capsule 01/14/18 Tamsulosin [Flomax] 0.4 mg PO 1700 #30 capsule 01/14/18 levoFLOXacin [Levaquin] 750 mg PO DAILY #38 tablet 01/14/18 Ondansetron Odt [Zofran] 4 mg TL Q6H PRN #10 tablet 07/01/24 Ciprofloxacin HCl 1 tablet PO BID 7 Days #14 tablet 05/05/24 - Allergies Allergies/Adverse Reactions: Allergies Allergy/AdvReac Type Severity Reaction Status Date / Time mephobarbital [From Mebaral] Allergy Unknown Verified 05/05/24 02:28 phenobarbital Allergy Unknown Verified 05/05/24 02:28 - Social History Does the pt smoke?: No Smoking Status: Never smoker Does the pt drink ETOH?: No Does the pt have substance abuse?: No - Immunizations Immunizations are current?: No Immunizations: TDAP current <10years - POLST Patient has POLST: No POLST Status: Full Code PD ED PE NORMAL - Vitals Vital signs reviewed: Yes - General General: Alert and oriented X 3, Well developed/nourished, Other (appears uncomfortable) - Abdomen Abdomen: Soft, Other (suprapubic fullness and TTP) - Derm Derm: Normal color, Warm and dry Results - Vitals Vitals: Vital Signs - 24 hr 05/05/24 05/05/24 05/05/24 02:20 02:34 03:13 Temperature 36.6 C Heart Rate 88 90 81 Respiratory 24 16 Rate Blood Pressure 200/97 H 151/78 H O2 Saturation 99 98 Oxygen O2 Source Room air - Labs Labs: Laboratory Tests 05/05/24 02:40 Urine Color YELLOW Urine Clarity HAZY Urine pH 6.0 Ur Specific [place] 1.025 Urine Protein 100 H Urine Glucose (UA) NEGATIVE Urine Ketones 15 H Urine Occult Blood LARGE H Urine Nitrite POSITIVE H Urine Bilirubin NEGATIVE Urine Urobilinogen 0.2 (NORMAL) Ur Leukocyte Esterase MODERATE H Urine RBC 11-25 H Urine WBC >25 H Ur Squamous Epith Cells RARE Squamous Urine Bacteria Moderate H Ur Microscopic Review INDICATED Urine Culture Comments INDICATED PD Medical Decision Making - ED course Complexity details: reviewed results, considered differential, d/w patient ED course: ED RN removed the patient's Walsh catheter, replaced it with a three-way catheter. This was based on patient report of noting blood clots in his urine and thus anticipation of possibility of needing CBI. Fortunately, there is no blood noted on the urine output which began immediately upon placement of the new catheter. Although only 300cc of clear yellow urine returned, it did result in resolution of patient's suprapubic fullness and pain. I performed bedside US which shows decompressed bladder surrounding the balloon tip of the walsh catheter. UA results are c/w UTI and thus he is given 500mg PO cipro with rx for one week of BID cipro. BUN, creatinine, and GFR were all normal on outpatient check 9 days ago (04/26/24). Patient has appointment with his urologist already scheduled for later this morning and I instructed him to keep this appointment Departure - Departure Disposition: 01 Home, Self Care Clinical Impression: Urinary retention Urinary tract infection Qualifiers: Urinary tract infection type: acute cystitis Hematuria presence: with hematuria Qualified Code(s): N30.01 - Acute cystitis with hematuria Condition: Good Instructions: ED Retention Urinary Male, ED UTI Cystitis Male Prescriptions: Ciprofloxacin HCl 1 tablet PO BID 7 Days #14 tablet Comments: Your catheter was changed out for a new one, and this resulted in a moderate amount of urine output which has led to resolution of your discomfort. As we discussed, it is very important that you keep the appointment with your urologist that is scheduled for later this morning. Be sure to mention to them that we changed out your catheter. The results of testing on tonight's urine sample are suggestive of a urinary tract infection. For this, you were given the first dose of an antibiotic (ciprofloxacin) in the emergency department, and I have provided you with a prescription for a one-week course of ciprofloxacin. Forms: PCP List Discharge Date/Time: 05/05/24 03:19
[2024-05-05 02:44] LABS: BILIRUBIN,URINE NEGATIVE (NEGATIVE); CLARITY,URINE HAZY (CLEAR); GLUCOSE, URINE (UA) NEGATIVE (NEGATIVE); KETONES,URINE (UA) 15 mg/dL (NEGATIVE); LEUKOCYTE ESTERASE, URINE MODERATE (NEGATIVE); NITRITE,URINE POSITIVE (NEGATIVE); OCCULT BLOOD,URINE LARGE (NEGATIVE); PROTEIN,URINE 100 mg/dL (NEGATIVE); UROBILINOGEN,URINE 0.2 (NORMAL) E.U./dL (NORMAL)
[2024-05-05 02:50] LABS: BACTERIA,URINE Moderate /HPF (None Seen); SQUAMOUS EPITHELIAL CELL,UR RARE Squamous (<= Few); WBC,URINE >25 /HPF (0-3)
[2024-05-05] MEDS: CIPROFLOXACIN 250 MG TABLET PO STA (03:08)
[2024-05-05 03:22] VITALS: BP 151/78; O2SAT 98
== END 2024-05-05 03:19 | disposition home or self-care (01) ==
LOC: EDUNIT# → ED 02:18
DX: T83.511A Infection and inflammatory reaction due to indwelling urethral catheter, initial encounter (principal); N30.01 Acute cystitis with hematuria; R33.9 Retention of urine, unspecified; I10 Essential (primary) hypertension; N40.0 Benign prostatic hyperplasia without lower urinary tract symptoms; Z79.899 Other long term (current) drug therapy
CPT/HCPCS: 51702; 81001; 87086; 87181; 99283; A9270; 81003